=== PATIENT | female | born 1960 | race Caucasian/White ===

== ENCOUNTER 2016-07-21 14:01 | Outpatient (CLI) | payer OTHER | END 2016-07-21 14:02 | disposition home or self-care (01) | DX: Z12.31 Encounter for screening mammogram for malignant neoplasm of breast (principal) ==

== ENCOUNTER 2016-10-22 09:06 | Outpatient (CLI) | payer OTHER ==
[2016-10-22 18:42] LABS: ALBUMIN/GLOBULIN RATIO 1.6 (1.0-2.2); BILIRUBIN,TOTAL 0.7 mg/dL (0.2-1.0); CALCIUM 9.2 mg/dL (8.5-10.3); CREATININE 0.7 mg/dL (0.4-1.0); POTASSIUM 4.1 mmol/L (3.5-5.0); TOTAL PROTEIN 6.5 g/dL (6.7-8.2)
[2016-10-22 18:51] LABS: BASOPHILS % (AUTO) 0.9 %; EOSINOPHILS # (AUTO) 0.2 10^3/uL (0.0-0.7); EOSINOPHILS % (AUTO) 4.7 %; HGB - HEMOGLOBIN 13.6 g/dL (12.0-16.0); LYMPHOCYTES # (AUTO) 1.3 10^3/uL (1.5-3.5); LYMPHOCYTES % (AUTO) 40.2 %; MEAN CORPUSCULAR HEMOGLOBIN 31.3 pg (27.0-31.0); MEAN CORPUSCULAR HGB CONC 33.1 g/dL (32.0-36.0); MEAN CORPUSCULAR VOLUME 94.3 fL (81.0-99.0); MEAN PLATELET VOLUME 10.5 fL (7.9-10.8); MONOCYTES # (AUTO) 0.3 10^3/uL (0.0-1.0); MONOCYTES % (AUTO) 8.7 %; NEUTROPHILS # (AUTO) 1.5 10^3/uL (1.5-6.6); NEUTROPHILS % (AUTO) 45.5 %; NUCLEATED RED BLOOD CELLS AUTO 0.2 /100WBC; RED BLOOD COUNT 4.35 10^6/uL (4.20-5.40); RED CELL DISTRIBUTION WIDTH 11.8 % (12.0-15.0); UNCORRECTED WHITE BLOOD COUNT 3.3 x10^3/uL; WHITE BLOOD COUNT 3.3 x10^3/uL (4.8-10.8)
== END 2016-10-22 09:07 | disposition home or self-care (01) ==
LOC: LAB.F 09:06
PROVIDERS: ATTEND Nurse Practitioner Family
DX: E83.52 Hypercalcemia (principal); R20.2 Paresthesia of skin
CPT/HCPCS: 36415; 80053; 83970; 85025

== ENCOUNTER 2016-11-11 15:35 | Outpatient (CLI) | payer OTHER ==
--- NOTE | 2016-11-12 09:47 | XRAY Report ---
TWO-VIEW LUMBAR SPINE: 11/11/2016 CLINICAL INDICATION: Paresthesias, low back pain. FINDINGS: AP, lateral views of the lumbar spine demonstrate mild degenerative disk disease, worst at L5-S1. There is no evidence of compression fracture or subluxation. The visualized bowel gas patte rn is normal. IMPRESSION: MILD DEGENERATIVE DISK DISEASE. JOB #: [id number] EXT JOB #:[id number]
--- NOTE | 2016-11-12 09:52 | XRAY Report ---
SACRUM AND COCCYX: 11/11/2016 CLINICAL INDICATION: Pain. FINDINGS: AP, oblique, and lateral views of the sacrum and coccyx demonstrate no evidence of fractur e. The sacral ala are preserved. Mild bilateral hip osteoarthritis is incidentally noted. IMPRESSION: NORMAL SACRUM AND COCCYX. JOB #: [id number] EXT JOB #:[id number]
== END 2016-11-11 15:36 | disposition home or self-care (01) ==
LOC: DI.S 15:35
PROVIDERS: ATTEND Nurse Practitioner Family
DX: M51.36 Other intervertebral disc degeneration, lumbar region (principal)
CPT/HCPCS: 72100; 72220

== ENCOUNTER 2017-03-17 14:32 | Outpatient (CLI) | payer OTHER ==
[2017-03-17 17:48] LABS: EOSINOPHILS # (AUTO) 0.2 10^3/uL (0.0-0.7); EOSINOPHILS % (AUTO) 5.3 %; HCT - HEMATOCRIT 39.7 % (37.0-47.0); HGB - HEMOGLOBIN 13.8 g/dL (12.0-16.0); LYMPHOCYTES # (AUTO) 1.4 10^3/uL (1.5-3.5); LYMPHOCYTES % (AUTO) 35.3 %; MEAN CORPUSCULAR HGB CONC 34.8 g/dL (32.0-36.0); MEAN CORPUSCULAR VOLUME 91.9 fL (81.0-99.0); MEAN PLATELET VOLUME 9.9 fL (7.9-10.8); MONOCYTES # (AUTO) 0.3 10^3/uL (0.0-1.0); MONOCYTES % (AUTO) 8.5 %; NEUTROPHILS % (AUTO) 49.9 %; RED BLOOD COUNT 4.32 10^6/uL (4.20-5.40); RED CELL DISTRIBUTION WIDTH 11.7 % (12.0-15.0); UNCORRECTED WHITE BLOOD COUNT 3.9 x10^3/uL; WHITE BLOOD COUNT 3.9 x10^3/uL (4.8-10.8)
[2017-03-17 18:20] LABS: ALBUMIN/GLOBULIN RATIO 1.5 (1.0-2.2); BILIRUBIN,TOTAL 0.7 mg/dL (0.2-1.0); CALCIUM 9.1 mg/dL (8.5-10.3); CREATININE 0.8 mg/dL (0.4-1.0); POTASSIUM 4.1 mmol/L (3.5-5.0); TOTAL PROTEIN 6.7 g/dL (6.7-8.2)
[2017-03-17 18:26] LABS: THYROID STIMULATING HORMONE 1.14 uIU/mL (0.34-5.60)
== END 2017-03-17 14:33 | disposition home or self-care (01) ==
LOC: LAB.F 14:32
PROVIDERS: ATTEND Nurse Practitioner Family
DX: R53.83 Other fatigue (principal); M54.5 Low back pain
CPT/HCPCS: 36415; 80053; 84436; 84439; 84443; 84481; 85025; 86376

== ENCOUNTER 2017-08-25 14:59 | Outpatient (CLI) | payer OTHER ==
[2017-08-25 17:37] LABS: BASOPHILS % (AUTO) 0.7 %; EOSINOPHILS # (AUTO) 0.1 10^3/uL (0.0-0.7); EOSINOPHILS % (AUTO) 2.9 %; HGB - HEMOGLOBIN 13.7 g/dL (12.0-16.0); LYMPHOCYTES # (AUTO) 1.3 10^3/uL (1.5-3.5); MEAN CORPUSCULAR HGB CONC 33.8 g/dL (32.0-36.0); MEAN CORPUSCULAR VOLUME 91.6 fL (81.0-99.0); MEAN PLATELET VOLUME 9.7 fL (7.9-10.8); MONOCYTES # (AUTO) 0.3 10^3/uL (0.0-1.0); MONOCYTES % (AUTO) 7.3 %; NEUTROPHILS # (AUTO) 2.8 10^3/uL (1.5-6.6); NEUTROPHILS % (AUTO) 61.1 %; PLT - PLATELET COUNT 192 10^3/uL (130-450); RED BLOOD COUNT 4.42 10^6/uL (4.20-5.40); RED CELL DISTRIBUTION WIDTH 11.6 % (12.0-15.0); WHITE BLOOD COUNT 4.5 x10^3/uL (4.8-10.8)
[2017-08-25 17:47] LABS: ALBUMIN 4.2 g/dL (3.2-5.5); ALBUMIN/GLOBULIN RATIO 1.5 (1.0-2.2); BILIRUBIN,TOTAL 0.6 mg/dL (0.2-1.0); CALCIUM 9.2 mg/dL (8.5-10.3); CREATININE 0.8 mg/dL (0.4-1.0)
== END 2017-08-25 15:00 | disposition home or self-care (01) ==
LOC: LAB.F 14:59
PROVIDERS: ATTEND Nurse Practitioner Family
DX: R10.12 Left upper quadrant pain (principal)
CPT/HCPCS: 36415; 80053; 82150; 83690; 85025

== ENCOUNTER 2017-10-02 10:48 | Outpatient (CLI) | payer OTHER ==
--- NOTE | 2017-10-02 19:48 | XRAY Report ---
THREE-VIEW RIGHT ANKLE: 10/02/2017 CLINICAL INDICATION: Pain. FINDINGS: AP, lateral, and oblique views of the right ankle demonstrate lateral soft tissue swelling. There is a possible tiny avulsion from the lateral calcaneus, only seen on the AP view. No joint effusion is present. The joint spaces are preserved. IMPRESSION: POSSIBLE TINY AVULSION FROM THE LATERAL CALCANEUS, ONLY SEEN ON THE AP VIEW. TD: 10/02/2017 19:47
== END 2017-10-02 10:49 | disposition home or self-care (01) ==
LOC: DI.S 10:48
PROVIDERS: ATTEND Nurse Practitioner Family
DX: M25.571 Pain in right ankle and joints of right foot (principal)

== ENCOUNTER 2018-04-19 13:09 | Emergency (ER) | payer OTHER ==
[2018-04-19] MEDS ORDERED: PROMETHAZINE INJ 25 MG in SODIUM CHLORIDE 0.9% 50 ML IV STA (14:37)
[2018-04-19] MEDS ORDERED: diphenhydrAMINE INJ 50 MG/ML VIAL IVP STA (14:37)
[2018-04-19] MEDS ORDERED: SODIUM CHLORIDE 0.9% 1,000 ML IV ONE (14:37)
[2018-04-19] MEDS ORDERED: KETOROLAC 30 MG/ML VIAL IVP STA (14:37)
[2018-04-19 14:53] LABS: BASOPHILS % (AUTO) 0.6 %; HGB - HEMOGLOBIN 14.3 g/dL (12.0-16.0); LYMPHOCYTES # (AUTO) 0.5 10^3/uL (1.5-3.5); LYMPHOCYTES % (AUTO) 10.1 %; MEAN CORPUSCULAR HEMOGLOBIN 31.8 pg (27.0-31.0); MEAN CORPUSCULAR HGB CONC 35.3 g/dL (32.0-36.0); MEAN CORPUSCULAR VOLUME 90.1 fL (81.0-99.0); MEAN PLATELET VOLUME 8.4 fL (7.9-10.8); MONOCYTES # (AUTO) 0.2 10^3/uL (0.0-1.0); MONOCYTES % (AUTO) 4.5 %; NEUTROPHILS # (AUTO) 4.1 10^3/uL (1.5-6.6); NEUTROPHILS % (AUTO) 83.8 %; PLT - PLATELET COUNT 173 10^3/uL (130-450); RED CELL DISTRIBUTION WIDTH 11.6 % (12.0-15.0); WHITE BLOOD COUNT 4.9 x10^3/uL (4.8-10.8)
--- NOTE | 2018-04-19 14:58 | ED Physician Documentation ---
History of Present Illness - Stated complaint Stated Complaint: MIGRAINE/DIZZY/NAUSEA - Chief complaint Chief Complaint: General - History obtained from History obtained from: Patient, Family - History of Present Illness Timing: How many weeks ago (1) Pain level max: 8 Pain level now: 5 - Additonal information Additional information: Patient is a 57-year-old female who presents with a headache that is waxing and waning since last week. She is also had diarrhea a few times. She states that that she has felt the room spinning since yesterday. Worse with movement, light, noise. Better with rest, closing her eyes and being in a dark room. Has had headaches in the past, but does not usually have migraines. Saw her PCP this morning and was brought here for evaluation. No focal neurological deficits. No numbness or tingling. No loss of vision. No changes to medications. No trauma. Review of Systems Ten Systems: 10 systems reviewed and negative Constitutional: denies: Fever, Chills Eyes: denies: Decreased vision Ears: denies: Ear pain Nose: denies: Rhinorrhea / runny nose, Congestion Throat: denies: Sore throat Cardiac: denies: Chest pain / pressure Respiratory: denies: Cough GI: reports: Nausea, Diarrhea. denies: Abdominal Pain, Vomiting, Hematemesis, Bloody / black stool Skin: denies: Rash Musculoskeletal: denies: Neck pain, Back pain Neurologic: denies: Focal weakness, Numbness, Confused, Altered mental status, Head injury, LOC PD PAST MEDICAL HISTORY - Past Medical History Past Medical History: Yes Cardiovascular: High cholesterol Endocrine/Autoimmune: HyPOthyroidism Musculoskeletal: Chronic back pain - Past Surgical History Past Surgical History: No General: Colonoscopy HEENT: Tonsil/Adenoidectomy Derm: Other - Present Medications Home Medications: Ambulatory Orders Medication Instructions Recorded Confirmed Meclizine [Antivert] 25 mg PO Q6H PRN #30 tablet 04/19/18 Ondansetron Odt [Zofran] 4 mg TL Q6H PRN #10 tablet 04/19/18 - Allergies Allergies/Adverse Reactions: Allergies Allergy/AdvReac Type Severity Reaction Status Date / Time antibiotic Allergy Unknown Uncoded 04/19/18 13:23 - Social History Does the pt smoke?: No Smoking Status: Never smoker Does the pt drink ETOH?: No Does the pt have substance abuse?: No - Immunizations Immunizations are current?: No Immunizations: TDAP >10years/unknown - POLST Patient has POLST: No PD ED PE NORMAL - Vitals Vital signs reviewed: Yes - General General: Alert and oriented X 3, No acute distress, Well developed/nourished - HEENT HEENT: Atraumatic, PERRL, EOMI, Ears normal, Moist mucous membranes, Pharynx benign - Neck Neck: Supple, no meningeal sign - Cardiac Cardiac: RRR, Strong equal pulses - Respiratory Respiratory: No respiratory distress, Clear bilaterally - Abdomen Abdomen: Soft, Non tender, Non distended - Back Back: No spinal TTP - Derm Derm: Warm and dry - Extremities Extremities: Normal ROM s pain, No edema, No calf tenderness / cord - Neuro Neuro: Alert and oriented X 3, dean for student affairs 2-12 intact, No motor deficit, No sensory deficit, Normal speech, Other (Horizontal nystagmus present. Positive Hallpike to the right) Eye Opening: Spontaneous Motor: Obeys Commands Verbal: Oriented GCS Score: 15 - Psych Psych: Normal mood, Normal affect Results - Vitals Vitals: Vital Signs - 24 hr 04/19/18 04/19/18 13:19 16:12 Temperature 36.2 C L Heart Rate 67 74 Respiratory 14 16 Rate Blood Pressure 136/75 H 142/75 H O2 Saturation 97 99 Oxygen O2 Source Room air - Labs Labs: Laboratory Tests 04/19/18 04/19/18 14:47 14:47 WBC 4.9 RBC 4.50 Hgb 14.3 Hct 40.5 MCV 90.1 MCH 31.8 H MCHC 35.3 RDW 11.6 L Plt Count 173 MPV 8.4 Neut # (Auto) 4.1 Lymph # (Auto) 0.5 L [place] # (Auto) 0.2 Eos # (Auto) 0.0 Baso # (Auto) 0.0 Absolute Nucleated RBC 0.00 Nucleated RBC % 0.0 Sodium 133 L Potassium 4.3 Chloride 96 L Carbon Dioxide 26 Anion Gap 11.0 BUN 15 Creatinine 0.6 Estimated GFR (MDRD) 102 Glucose 102 H Calcium 9.2 Total Bilirubin 1.1 H AST 20 ALT 25 Alkaline Phosphatase 78 Total Protein 7.5 Albumin 4.4 Globulin 3.1 Albumin/Globulin Ratio 1.4 Lipase 23 PD MEDICAL DECISION MAKING - ED course Complexity details: reviewed results, re-evaluated patient, considered differential, d/w patient, d/w family ED course: Patient is a 57-year-old female with a headache, this was treated with a migraine cocktail which resolved the headache. The vertigo persisted, horizontal nystagmus, positive Hallpike to the right. Meclizine seem to help. NIH stroke scale of 0. No neurological deficits. No evidence of cerebellar stroke or tumor. Will treat with meclizine and follow-up closely with her doctor for further evaluation and care. Patient counseled regarding signs and symptoms for which I believe and urgent re-evaluation would be necessary. Patient with good understanding of and agreement to plan and is comfortable going home at this time This document was made in part using voice recognition software. While efforts are made to proofread this document, sound alike and grammatical errors may occur. No evidence of subarachnoid hemorrhage or intracranial bleed clinically. GCS 15 Departure - Departure Disposition: 01 Home, Self Care Clinical Impression: Vertigo Headache Qualifiers: Headache type: unspecified Headache chronicity pattern: acute headache Intractability: not intractable Qualified Code(s): R51 - Headache Condition: Good Instructions: ED Cephalgia Unspecified, ED Vertigo Unspecified Follow-Up: DELFINO CORDOVA MD [Primary Care Provider] - Within 1 week Prescriptions: Meclizine [Antivert] 25 mg PO Q6H PRN #30 tablet PRN Reason: Vertigo Ondansetron Odt [Zofran] 4 mg TL Q6H PRN #10 tablet PRN Reason: Nausea / Vomiting Comments: Return if you worsen. Drink plenty of fluids and rest. The vertigo should improve over the next few days. Discharge Date/Time: 04/19/18 17:30
[2018-04-19 15:06] LABS: ALBUMIN 4.4 g/dL (3.2-5.5); ALBUMIN/GLOBULIN RATIO 1.4 (1.0-2.2); BILIRUBIN,TOTAL 1.1 mg/dL (0.2-1.0); CALCIUM 9.2 mg/dL (8.5-10.3); CREATININE 0.6 mg/dL (0.4-1.0); TOTAL PROTEIN 7.5 g/dL (6.7-8.2)
[2018-04-19] MEDS ORDERED: MECLIZINE 12.5 MG TABLET PO STA (16:05)
[2018-04-19 16:13] VITALS: BP 142/75
== END 2018-04-19 17:30 | disposition home or self-care (01) ==
LOC: ED 13:09
DX: R42 Dizziness and giddiness (principal); R51 Headache; R11.0 Nausea
CPT/HCPCS: 36415; 80053; 83690; 85025; 96365; 96375; 99283; A9270; J1200; J7040

== ENCOUNTER 2018-05-26 11:17 | Outpatient (CLI) | payer OTHER ==
--- NOTE | 2018-05-27 09:22 | Mammography Report ---
Reason: SCREENING MAMMO Procedure Date: 05/26/2018 Accession Number: [id number] / [id number] Procedure: [facility] - Screening Mammo w/Isra CPT Code: FULL RESULT: EXAM: Screening Mammo w/Isra DATE: 05/26/2018 11:59 AM CLINICAL HISTORY: Screening encounter. History of nulliparity and left breast surgical biopsy with benign results. Family history of breast cancer in the mother at age 80. TECHNIQUE: Bilateral CC and MLO views were obtained. COMPARISON: 07/21/2016 through 06/19/2010. FINDINGS: The breasts demonstrate heterogeneously dense fibroglandular parenchyma bilaterally. There are coarse typically benign calcifications. No suspicious masses, clustered microcalcifications, or regions of architectural distortion are identified. IMPRESSION: Benign findings RECOMMENDATION: Routine annual screening unless otherwise clinically indicated. BIRADS CATEGORY 2: Benign findings STANDARD QUALIFYING STATEMENTS: 1. This examination was not reviewed with the aid of Computer-Aided Detection (CAD). 2. A negative or benign imaging report should not preclude biopsy if clinically suspicious findings are present. 3. Dense breasts may obscure an underlying neoplasm. 4. This examination was reviewed with the aid of 3D breast imaging (tomosynthesis).
== END 2018-05-26 11:18 | disposition home or self-care (01) ==
LOC: DI 11:17
PROVIDERS: ATTEND Internal Medicine
DX: Z12.31 Encounter for screening mammogram for malignant neoplasm of breast (principal); Z80.3 Family history of malignant neoplasm of breast
CPT/HCPCS: 77063; 77067

== ENCOUNTER 2019-05-27 11:37 | Outpatient (CLI) | payer OTHER ==
--- NOTE | 2019-05-30 11:39 | Mammography Report ---
Reason: ROUTINE MAMMO Procedure Date: 05/27/2019 Accession Number: [id number] / [id number] Procedure: MGS - Screening Mammo Dig Bilat CPT Code: Final Report FULL RESULT: EXAM: Screening Mammo Dig Bilat DATE: 05/27/2019 12:03 PM CLINICAL HISTORY: Routine screening TECHNIQUE: (B) - Bilateral CC and MLO views were obtained. COMPARISON: 05/26/2018, 07/21/2016, 04/10/2014, 06/30/2012 and 06/19/2010 PARENCHYMAL PATTERN: (D) - The breasts demonstrate heterogeneously dense fibroglandular parenchyma bilaterally. FINDINGS: No significant interval change. Innumerable bilateral calcifications are scattered throughout both breasts with a gradual increase over series of mammograms. No one area appears worrisome enough to warrant additional imaging. There are no suspicious masses, calcifications, or areas of distortion. IMPRESSION: Benign findings. BI-RADS category 2. RECOMMENDATION: (ANNUAL) - Recommend routine annual screening mammography. BI-RADS CATEGORY: (2) - Benign Findings. STANDARD QUALIFYING STATEMENTS: 1. This examination was not reviewed with the aid of Computer-Aided Detection (CAD). 2. A negative or benign imaging report should not preclude biopsy if clinically suspicious findings are present. 3. Dense breasts may obscure an underlying neoplasm. 4. This examination was reviewed without the aid of 3D breast imaging (tomosynthesis).
== END 2019-05-27 11:38 | disposition home or self-care (01) ==
LOC: DI.S 11:37
DX: Z12.31 Encounter for screening mammogram for malignant neoplasm of breast (principal)
CPT/HCPCS: 77067

== ENCOUNTER 2019-10-15 19:32 | Emergency (ER) | payer OTHER ==
--- NOTE | 2019-10-15 20:10 | ED Physician Documentation ---
History of Present Illness - Stated complaint Stated Complaint: R CALF PAIN - Chief complaint Chief Complaint: Ext Problem - History obtained from History obtained from: Patient - History of Present Illness Timing: How many days ago (3-4) Pain level max: 5 Pain level now: 4 - Additonal information Additional information: 58-year-old female presents to the emergency department stating she had pain in her distal thigh after taking an online yoga class a few days ago. Now the pain has moved to her calf and she noticed that her calf was swollen today. She called the nurse advice line and was instructed to come here for possible DVT. She does not smoke. No history of blood clots. She is not on any medications at home. She does not take hormones. No redness. No fever. Nothing makes it better or worse Review of Systems Constitutional: denies: Fever, Chills Cardiac: denies: Chest pain / pressure Respiratory: denies: Dyspnea, Cough GI: denies: Vomiting, Diarrhea Skin: denies: Rash Musculoskeletal: denies: Neck pain, Back pain PD PAST MEDICAL HISTORY - Past Medical History Cardiovascular: High cholesterol Endocrine/Autoimmune: HyPOthyroidism Musculoskeletal: Chronic back pain - Past Surgical History Past Surgical History: No General: Colonoscopy HEENT: Tonsil/Adenoidectomy Derm: Other - Present Medications Home Medications: Ambulatory Orders Medication Instructions Recorded Confirmed Meclizine [Antivert] 25 mg PO Q6H PRN #30 tablet 04/19/18 Ondansetron Odt [Zofran] 4 mg TL Q6H PRN #10 tablet 04/19/18 - Allergies Allergies/Adverse Reactions: Allergies Allergy/AdvReac Type Severity Reaction Status Date / Time Sulfa (Sulfonamide AdvReac Mild Unknown Verified 10/15/19 19:45 Antibiotics) antibiotic Allergy Unknown Uncoded 04/19/18 13:23 - Social History Does the pt smoke?: No Smoking Status: Never smoker Does the pt drink ETOH?: No Does the pt have substance abuse?: No - Immunizations Immunizations are current?: No Immunizations: TDAP >10years/unknown - POLST Patient has POLST: No PD ED PE NORMAL - Vitals Vital signs reviewed: Yes - General General: Alert and oriented X 3, No acute distress, Well developed/nourished - HEENT HEENT: Moist mucous membranes - Neck Neck: Supple, no meningeal sign - Respiratory Respiratory: No respiratory distress - Derm Derm: Warm and dry - Extremities Extremities: Other (Mild swelling to the right posterior calf with mild tenderness. Neurovascular intact. Compartments are soft. No skin changes. No signs of infection. No bruising.) - Neuro Neuro: Alert and oriented X 3 - Psych Psych: Normal mood, Normal affect Results - Vitals Vitals: Vital Signs - 24 hr 10/15/19 10/15/19 19:40 21:06 Temperature 37.2 C Heart Rate 70 56 L Respiratory 16 20 Rate Blood Pressure 143/81 H 150/80 H O2 Saturation 98 100 Oxygen O2 Source Room air - Rads (name of study) Duplex ultrasound right lower extremity Radiology: Prelim report reviewed, EMP read contemporaneously, See rad report (No DVT) PD MEDICAL DECISION MAKING - ED course Complexity details: reviewed results, re-evaluated patient, considered differential, d/w patient ED course: Patient with right calf swelling after taking a yoga class. Likely calf strain. No evidence of DVT. No evidence of cellulitis. No evidence of infection. Patient counseled regarding signs and symptoms for which I believe and urgent re-evaluation would be necessary. Patient with good understanding of and agreement to plan and is comfortable going home at this time This document was made in part using voice recognition software. While efforts are made to proofread this document, sound alike and grammatical errors may occur. Departure - Departure Disposition: 01 Home, Self Care Clinical Impression: Strain of calf muscle Qualifiers: Encounter type: initial encounter Laterality: right Qualified Code(s): S86.811A - Strain of other muscle(s) and tendon(s) at lower leg level, right leg, initial encounter Condition: Good Instructions: ED Strain Muscle Ext Follow-Up: Your,doctor in 1 week [Other] Comments: There is no evidence of blood clot on your ultrasound tonight. You can use Motrin and/or Tylenol as needed for pain. Return if you worsen. This should improve over the next week or so. Ice and/or heat may help as well. Discharge Date/Time: 10/15/19 21:08
--- NOTE | 2019-10-15 21:04 | Ultrasound Report ---
Reason: R calf pain and swelling Procedure Date: 10/15/2019 Accession Number: [id number] / [id number] Procedure: US - Duplex Ext Veins Right CPT Code: Final Report FULL RESULT: EXAM: RIGHT LOWER EXTREMITY VENOUS ULTRASOUND EXAM DATE: 10/15/2019 08:30 PM. CLINICAL HISTORY: R calf pain and swelling. COMPARISON: None. TECHNIQUE: Real-time sonographic vascular imaging was performed by the grants and contracts assistant through the lower extremity utilizing both color-flow and Doppler spectral analysis. Multiple community relations representative static images were saved for review. FINDINGS: Common Femoral Vein (CFV): Normal. CFV-GSV Junction: Normal. Profunda Femoral Vein (PFV): Normal. Femoral Vein (FV) Prox: Normal. Femoral Vein (FV) Mid: Normal. Femoral Vein (FV) Dist: Normal. Popliteal Vein: Normal. Posterior Tibial Veins: Normal. Peroneal Veins: Normal. Contralateral Side CFV: Not evaluated. Other: None. IMPRESSION: No evidence for deep venous thrombosis in the right lower extremity. RADIA
[2019-10-15 21:07] VITALS: BP 150/80
== END 2019-10-15 21:08 | disposition home or self-care (01) ==
LOC: ED 19:32
DX: S86.811A Strain of other muscle(s) and tendon(s) at lower leg level, right leg, initial encounter (principal); X50.9XXA Other and unspecified overexertion or strenuous movements or postures, initial encounter; Y93.42 Activity, yoga
CPT/HCPCS: 99283; 99284

== ENCOUNTER 2020-08-18 13:17 | Outpatient (CLI) | payer OTHER | END 2020-08-18 13:18 | disposition critical access hospital (66) | LOC: EMS 13:17 | PROVIDERS: ATTEND Emergency Medicine | DX: R00.2 Palpitations (principal) | CPT/HCPCS: A0425; A0429 ==

== ENCOUNTER 2020-08-18 13:44 | Emergency (ER) | payer OTHER ==
[2020-08-18] MEDS ORDERED: SODIUM CHLORIDE 0.9% 1,000 ML IV STA (14:04)
--- NOTE | 2020-08-18 14:06 | ED Physician Documentation ---
PD HPI CHEST PAIN - Stated complaint Stated Complaint: PALPATATIONS - History obtained from History obtained from: Patient, EMS - History of Present Illness Timing - onset: How many days ago (several) Timing - onset during: Sleep, Rest, Light activity. No: Exertion Timing - duration: Seconds Timing - details: Intermittant (Having intermittent feeling of lurching in her chest associated with a mild cough precipitated. She denies pain per se. She denies any near syncope. She has noted this over the last several days to varying degrees.) Quality: Other ("surge" feeling with stimulated cough intermittently. Feeling of just not well.). No: Aching, Sharp Location: Substernal Radiation: No: Jaw, Neck Improved by: No: Rest Worsened by: No: Exertion (feels better when active, more noted with resting.) Associated symptoms: Cough (just when the "surge" feeling happens.). No: Shortness of air, Nausea, Feeling faint / dizzy Similar symptoms before: Has not had sx before Recently seen: Clinic (seeing PMD and had had concern about underfunctioning thyroid. Has been on thyroid supplement the past few months, and had dose increased about 3 weeks ago. No other recent med change.), Other (Denies alcohol use, nor smoking. Has just 1 cup coffee daily.) Review of Systems Constitutional: denies: Fever, Chills Nose: denies: Rhinorrhea / runny nose, Congestion Throat: denies: Sore throat Cardiac: reports: Palpitations. denies: Chest pain / pressure, Pedal edema, Calf pain Respiratory: denies: Dyspnea, Wheezing GI: denies: Nausea, Vomiting, Diarrhea Neurologic: denies: Focal weakness, Near syncope, Headache Endocrine: denies: Weight loss, Weight gain PD PAST MEDICAL HISTORY - Past Medical History Cardiovascular: High cholesterol Respiratory: None Neuro: None Endocrine/Autoimmune: HyPOthyroidism Musculoskeletal: Chronic back pain - Past Surgical History Past Surgical History: No General: Colonoscopy HEENT: Tonsil/Adenoidectomy Derm: Other - Present Medications Home Medications: Ambulatory Orders Medication Instructions Recorded Confirmed Meclizine [Antivert] 25 mg PO Q6H PRN #30 tablet 04/19/18 Ondansetron Odt [Zofran] 4 mg TL Q6H PRN #10 tablet 04/19/18 - Allergies Allergies/Adverse Reactions: Allergies Allergy/AdvReac Type Severity Reaction Status Date / Time meloxicam Allergy Dizziness Verified 08/18/20 13:49 Sulfa (Sulfonamide AdvReac Mild Unknown Verified 10/15/19 19:45 Antibiotics) antibiotic Allergy Unknown Uncoded 04/19/18 13:23 - Social History Does the pt smoke?: No Smoking Status: Never smoker Does the pt drink ETOH?: No Does the pt have substance abuse?: No - Immunizations Immunizations are current?: No Immunizations: TDAP >10years/unknown - POLST Patient has POLST: No PD ED PE NORMAL - Vitals Vital signs reviewed: Yes - General General: Alert and oriented X 3, No acute distress (conversant. Appears concerned about the symptoms but not in distress. ), Well developed/nourished - HEENT HEENT: Moist mucous membranes, Pharynx benign - Neck Neck: Supple, no meningeal sign, No adenopathy, Thyroid normal - Cardiac Cardiac: RRR, No murmur, Other (monitor shows PVC when she has a feeling of the surge feeling in her chest. ) - Respiratory Respiratory: Clear bilaterally - Abdomen Abdomen: Soft, Non tender - Derm Derm: Normal color, Warm and dry - Extremities Extremities: No tenderness to palpate, Normal ROM s pain, No edema, No calf tenderness / cord - Neuro Neuro: Alert and oriented X 3, No motor deficit, Normal speech Results - Vitals Vitals: Vital Signs - 24 hr 08/18/20 08/18/20 08/18/20 13:49 14:00 15:35 Temperature 36.9 C Heart Rate 89 73 71 Respiratory 24 18 18 Rate Blood Pressure 155/111 H 145/117 H 133/73 H O2 Saturation 100 98 100 Oxygen O2 Source Room air Oxygen Flow Rate 98 - EKG (time done) 15:13 Rate: Rate (enter#) (72) Rhythm: NSR [place]: Normal Intervals: Normal CT QRS: Normal Ischemia: Normal ST segments. No: ST elevation c/w ischemia, ST depression - Labs Labs: Laboratory Tests 08/18/20 08/18/20 08/18/20 14:30 14:30 14:30 WBC 5.0 RBC 3.99 L Hgb 11.8 L Hct 35.3 L MCV 88.5 MCH 29.6 MCHC 33.4 RDW 11.7 L Plt Count 254 MPV 10.1 Neut # (Auto) 3.7 Lymph # (Auto) 0.8 L [place] # (Auto) 0.4 Eos # (Auto) 0.1 Baso # (Auto) 0.0 Absolute Nucleated RBC 0.00 Nucleated RBC % 0.0 Sodium 140 Potassium 4.2 Chloride 100 L Carbon Dioxide 26 Anion Gap 14.0 H BUN 13 Creatinine 0.5 Estimated GFR (MDRD) 125 Glucose 109 H Calcium 9.5 Magnesium 2.3 Total Bilirubin 0.7 AST 17 ALT 13 Alkaline Phosphatase 68 Troponin I High Sens < 2.3 L B-Natriuretic Peptide Total Protein 6.8 Albumin 3.4 Globulin 3.4 Albumin/Globulin Ratio 1.0 Lipase 22 TSH 08/18/20 08/18/20 14:30 14:30 WBC RBC Hgb Hct MCV MCH MCHC RDW Plt Count MPV Neut # (Auto) Lymph # (Auto) [place] # (Auto) Eos # (Auto) Baso # (Auto) Absolute Nucleated RBC Nucleated RBC % Sodium Potassium Chloride Carbon Dioxide Anion Gap BUN Creatinine Estimated GFR (MDRD) Glucose Calcium Magnesium Total Bilirubin AST ALT Alkaline Phosphatase Troponin I High Sens B-Natriuretic Peptide 41 Total Protein Albumin Globulin Albumin/Globulin Ratio Lipase TSH < 0.08 L - Rads (name of study) chest xray Radiology: Prelim report reviewed (no acute process), See rad report PD MEDICAL DECISION MAKING - ED course Complexity details: reviewed results (TSH is very low suggesting her thyroid supplement is been increased too much. This would correlate with potentially the PVCs. Electrolytes are otherwise normal. No signs of heart muscle injury or heart failure based on lab testing and x-ray. Does not sound ischemic.), re- evaluated patient (She is having occasional feelings of the same lurching feeling in her chest that she had been feeling at home. This correlated on the monitor with PVCs. No other ectopy noted.), considered differential, d/w patient Departure - Departure Disposition: 01 Home, Self Care Clinical Impression: Chest discomfort, PVC's (premature ventricular contractions) Condition: Stable Record reviewed to determine appropriate education?: Yes Instructions: ED Palpitations Follow-Up: DHIRAJ PATTERSON PA [Primary Care Provider] - Comments: Your EKG is appears normal. There is no signs of heart failure or heart injury on your blood test. Your electrolytes are normal. Your TSH (thyroid- stimulating hormone) is very low which suggests that your thyroid medication dosing is a little too high. I would hold your thyroid supplement for the next 3 days or so and then resume it at the "1 g" dose you had been on previously. I would anticipate improvement in the number of PVCs generally over the next several days to a week or so with lowering of the dose and staying well- hydrated. Follow-up with your primary care.
--- NOTE | 2020-08-18 14:24 | XRAY Report ---
PROCEDURE: Chest 1 View X-Ray INDICATIONS: Chest Pain TECHNIQUE: One view of the chest was acquired. COMPARISON: None FINDINGS: Surgical changes and devices: None. Lungs and pleura: No pleural effusions or pneumothorax. Lungs are clear. Mediastinum: Mediastinal contours appear normal. Heart size is normal. Bones and chest wall: No suspicious bony lesions. Overlying soft tissues appear unremarkable. IMPRESSION: No evidence acute pulmonary process. Reviewed by: Gregory Giles MD on 08/18/2020 1:23 PM [facility] Approved by: Gregory Giles MD on 08/18/2020 1:23 PM [facility] Station ID: [id number]
[2020-08-18 14:44] LABS: BASOPHILS % (AUTO) 0.6 %; EOSINOPHILS # (AUTO) 0.1 10^3/uL (0.0-0.7); EOSINOPHILS % (AUTO) 1.8 %; HCT - HEMATOCRIT 35.3 % (37.0-47.0); HGB - HEMOGLOBIN 11.8 g/dL (12.0-16.0); LYMPHOCYTES # (AUTO) 0.8 10^3/uL (1.5-3.5); LYMPHOCYTES % (AUTO) 14.9 %; MEAN CORPUSCULAR HEMOGLOBIN 29.6 pg (27.0-31.0); MEAN CORPUSCULAR HGB CONC 33.4 g/dL (32.0-36.0); MEAN CORPUSCULAR VOLUME 88.5 fL (81.0-99.0); MEAN PLATELET VOLUME 10.1 fL (7.9-10.8); MONOCYTES # (AUTO) 0.4 10^3/uL (0.0-1.0); MONOCYTES % (AUTO) 8.2 %; NEUTROPHILS # (AUTO) 3.7 10^3/uL (1.5-6.6); NEUTROPHILS % (AUTO) 74.1 %; PLT - PLATELET COUNT 254 10^3/uL (130-450); RED BLOOD COUNT 3.99 10^6/uL (4.20-5.40); RED CELL DISTRIBUTION WIDTH 11.7 % (12.0-15.0)
[2020-08-18 15:08] LABS: ALBUMIN 3.4 g/dL (3.2-5.5); BILIRUBIN,TOTAL 0.7 mg/dL (0.2-1.0); CALCIUM 9.5 mg/dL (8.5-10.3); CREATININE 0.5 mg/dL (0.4-1.0); MAGNESIUM 2.3 mg/dL (1.7-2.8); POTASSIUM 4.2 mmol/L (3.5-5.0); TOTAL PROTEIN 6.8 g/dL (6.7-8.2)
[2020-08-18 16:21] VITALS: BP 129/72
== END 2020-08-18 16:30 | disposition home or self-care (01) ==
LOC: EDUNIT# → ED 13:44
DX: I49.3 Ventricular premature depolarization (principal); R07.89 Other chest pain
CPT/HCPCS: 36415; 80053; 83690; 83735; 83880; 84443; 84484; 85025; 93005; 99284

== ENCOUNTER 2020-09-26 08:00 | Outpatient (CLI) | payer OTHER ==
[2020-09-26 18:06] LABS: BASOPHILS % (AUTO) 0.4 %; EOSINOPHILS # (AUTO) 0.1 10^3/uL (0.0-0.7); EOSINOPHILS % (AUTO) 2.1 %; HCT - HEMATOCRIT 36.4 % (37.0-47.0); HGB - HEMOGLOBIN 11.8 g/dL (12.0-16.0); LYMPHOCYTES # (AUTO) 1.2 10^3/uL (1.5-3.5); LYMPHOCYTES % (AUTO) 24.3 %; MEAN CORPUSCULAR HEMOGLOBIN 28.5 pg (27.0-31.0); MEAN CORPUSCULAR HGB CONC 32.4 g/dL (32.0-36.0); MEAN CORPUSCULAR VOLUME 87.9 fL (81.0-99.0); MEAN PLATELET VOLUME 10.2 fL (7.9-10.8); MONOCYTES # (AUTO) 0.4 10^3/uL (0.0-1.0); MONOCYTES % (AUTO) 8.8 %; NEUTROPHILS # (AUTO) 3.1 10^3/uL (1.5-6.6); NEUTROPHILS % (AUTO) 64.2 %; PLT - PLATELET COUNT 326 10^3/uL (130-450); RED BLOOD COUNT 4.14 10^6/uL (4.20-5.40); RED CELL DISTRIBUTION WIDTH 12.9 % (12.0-15.0); WHITE BLOOD COUNT 4.8 x10^3/uL (4.8-10.8)
[2020-09-26 18:31] LABS: ALBUMIN/GLOBULIN RATIO 1.1 (1.0-2.2); BILIRUBIN,TOTAL 0.6 mg/dL (0.2-1.0); CREATININE 0.4 mg/dL (0.4-1.0); POTASSIUM 4.2 mmol/L (3.5-5.0); TOTAL PROTEIN 7.6 g/dL (6.7-8.2)
[2020-09-27 12:16] LABS: HEPATITIS B SURFACE ANTIGEN NON-REACTIVE (NON-REACTIVE); HEPATITIS C ANTIBODY NON-REACTIVE (NON-REACTIVE)
== END 2020-09-26 23:59 | disposition home or self-care (01) ==
LOC: LAB.WCP 08:00
PROVIDERS: ATTEND Internal Medicine Rheumatology
DX: M06.4 Inflammatory polyarthropathy (principal)
CPT/HCPCS: 36415; 80053; 85025; 85651; 86803; 87340

== ENCOUNTER 2021-01-10 13:12 | Outpatient (CLI) | payer OTHER ==
--- NOTE | 2021-01-11 10:49 | Mammography Report ---
BILATERAL DIGITAL SCREENING MAMMOGRAM 3D/2D: 01/10/2021 CLINICAL: Routine screening. Comparison is made to exams dated: 05/27/2019 mammogram, 05/26/2018 mammogram, 07/21/2016 mammogram, 1 mammogram, 06/30/2012 mammogram, and 06/19/2010 mammogram - [facility]. The tissue of both breasts is extremely dense, which lowers the sensitivity of mammography. There is an oval equal density asymmetry with an obscured and indistinct margin in the left breast po sterior depth superior region seen on the mediolateral oblique view only. This is more prominent. No other significant masses, calcifications, or other findings are seen in either breast. IMPRESSION: INCOMPLETE: NEEDS ADDITIONAL IMAGING EVALUATION The oval equal density asymmetry in the left breast is indeterminate. Mediolateral and spot compress ion views as well as additional views with possible ultrasound are recommended. This exam was interpreted at Station ID: [id number]. NOTE: For mammograms, a report in lay terms will be sent to the patient. Approximately 15% of breast malignancies will not be visualized mammographically. In the management of a palpable breast mass, a negative mammogram must not discourage biopsy of a clinically suspicious lesion. Electronically Signed By: Artie Bartlett M.D. ddp/penrad:01/10/2021 14:32:20 ACR BI-RADS Category 0: Incomplete 3340F PARENCHYMAL PATTERN: (VD) - The breast(s) demonstrate(s) extremely dense parenchyma, limiting the sen sitivity of mammography. BI-RADS CATEGORY: (0) - 0 Mammo and US [id number] Immediate follow-up LATERALITY: (B)
== END 2021-01-10 13:13 | disposition home or self-care (01) ==
LOC: DI 13:12
DX: Z12.31 Encounter for screening mammogram for malignant neoplasm of breast (principal); R92.8 Other abnormal and inconclusive findings on diagnostic imaging of breast

== ENCOUNTER 2021-01-25 12:39 | Outpatient (CLI) | payer OTHER ==
--- NOTE | 2021-01-28 16:37 | Mammography Report ---
UNILATERAL LEFT DIGITAL DIAGNOSTIC MAMMOGRAM 3D/2D: 01/25/2021 CLINICAL: Patient returns today to evaluate an asymmetry in the left breast. Comparison is made to exams dated: 01/10/2021 mammogram, 05/27/2019 mammogram, 05/26/2018 mammogram, 07/21/2016 mammogram, 04/10/2014 mammogram, and 06/30/2012 mammogram - [facility]. Th e tissue of left breast is extremely dense, which lowers the sensitivity of mammography. There is an oval equal density asymmetry with an obscured and indistinct margin in the left breast po sterior depth superior region seen on the mediolateral oblique view only. This is seen in additional views. This is more prominent. No other significant masses or calcifications are seen in the breast. IMPRESSION: INCOMPLETE: NEEDS ADDITIONAL IMAGING EVALUATION The oval equal density asymmetry in the left breast is indeterminate. An ultrasound is recommended for further evaluation and is scheduled to immediately follow this exami nation. This exam was interpreted at Station ID: [id number]. NOTE: For mammograms, a report in lay terms will be sent to the patient. Approximately 15% of breast malignancies will not be visualized mammographically. In the management of a palpable breast mass, a negative mammogram must not discourage biopsy of a clinically suspicious lesion. Electronically Signed By: Wili De Anda M.D. aty/:01/25/2021 15:06:47 ACR BI-RADS Category 0: Incomplete 3340F PARENCHYMAL PATTERN: (VD) - The breast(s) demonstrate(s) extremely dense parenchyma, limiting the sen sitivity of mammography. BI-RADS CATEGORY: (0) - 0 Ultrasound [id number] Immediate follow-up LATERALITY: (L)
--- NOTE | 2021-01-28 16:37 | Ultrasound Report ---
LIMITED ULTRASOUND OF LEFT BREAST AND AXILLA: 01/25/2021 CLINICAL: Patient returns today to evaluate a focal asymmetry in the left breast. Comparison is made to exams dated: 01/25/2021 mammogram, 01/10/2021 mammogram, 05/27/2019 mammogram, 1 07/27/2017 mammogram, 07/21/2016 mammogram, and 04/10/2014 mammogram - [facility]. Color flow and real-time ultrasound of the left breast 2 o'clock, and axilla regions were performed. Carey scale images of the real-time examination were reviewed. There is a 0.9 cm x 0.5 cm x 0.7 cm irregular mass in the left breast at 2 o'clock posterior depth 9 cm from the nipple. This irregular mass is hypoechoic with suggestion of possible fatty hilum. Ther e is irregular, eccentric cortical thickening and possible posterior shadowing. This correlates with mammography findings. Color flow imaging demonstrates that there is no vascularity present. No significant abnormalities were seen sonographically in the left axilla. IMPRESSION: SUSPICIOUS OF MALIGNANCY The 0.9 cm x 0.5 cm x 0.7 cm irregular mass in the left breast resembles a solid mass or an abnormal lymph node and is suspicious of malignancy. An ultrasound guided biopsy is recommended. Findings and recommendations were discussed with the patient by Dr. Giles during today's examination . This exam was interpreted at Station ID: [id number]. Electronically Signed By: Wili De Anda M.D. aty/:01/25/2021 15:09:28 Ultrasound BI-RADS: 4 Suspicious for malignancy BI-RADS CATEGORY: (4) - 4 None [id number] Immediate follow-up LATERALITY: ()
== END 2021-01-25 12:40 | disposition home or self-care (01) ==
LOC: DI 12:39
PROVIDERS: ATTEND Physician Assistant
DX: R92.8 Other abnormal and inconclusive findings on diagnostic imaging of breast (principal)

== ENCOUNTER 2021-01-30 08:17 | Outpatient (CLI) | payer OTHER ==
[2021-01-30] MEDS ORDERED: LIDOCAINE MPF 1%-EPI 1:200000 30 ML VIAL ONE (08:18)
[2021-01-30] MEDS ORDERED: BUFFERED LIDOCAINE 10 ML SYRINGE ONE (08:18)
--- NOTE | 2021-01-30 10:25 | Ultrasound Report ---
Salvador Reviewed by: Darnell Lin on 01/30/2021 10:24 AM PDT Approved by: Darnell Lin on 01/30/2021 10:24 AM PDT Station ID: [id number]
--- NOTE | 2021-02-08 07:02 | Ultrasound Report ---
LIMITED ULTRASOUND OF LEFT BREAST: 01/30/2021 CLINICAL: Patient returns today to evaluate an asymmetry in the left breast. Comparison is made to exams dated: 01/25/2021 ultrasound, 01/25/2021 mammogram, 01/10/2021 mammogram, 1 07/28/2018 mammogram, 05/26/2018 mammogram, and 07/21/2016 mammogram - [facility]. Ultrasound of the left breast 2 o'clock region was performed. Carey scale images of the real-time exa mination were reviewed. The 0.9 cm x 0.5 cm x 0.7 cm mass in the left breast at 2 o'clock posterior depth 9 cm from the nippl e seen on 01/25/2021 is no longer seen. The previously described mass was seen with harmonic imaging . Real time ultrasound was performed by myself with no mass. Several areas of dense breast tissue w ere identified which had a similar appearance to still images on the prior ultrasound, however with r eal-time imaging these areas were proven to be normal breast tissue. IMPRESSION: PROBABLY BENIGN Real-time ultrasound was performed by the geotechnical engineering technician and myself and the previous finding is dete rmined under real-time ultrasound without and with harmonics to be dense breast tissue with no solid mass identified. The findings were discussed with the patient and questions were answered. Will follo w-up in 6 months to ensure no change. The patient is currently asymptomatic and was advised to return earlier if she notices any palpable abnormality. A follow-up left mammogram and an ultrasound in 6 months is recommended to demonstrate stability. This exam was interpreted at Station ID: [id number]. Electronically Signed By: Darnell Lin acr/:01/30/2021 10:23:26 Ultrasound BI-RADS: 3 Probably benign BI-RADS CATEGORY: (3) - 3 Mammo and US [id number] 6 month follow-up LATERALITY: (L)
== END 2021-01-30 08:18 | disposition home or self-care (01) ==
LOC: DI 08:17
PROVIDERS: ATTEND Physician Assistant
DX: R92.8 Other abnormal and inconclusive findings on diagnostic imaging of breast (principal)

== ENCOUNTER 2022-05-23 01:26 | Emergency (ER) | payer OTHER ==
[2022-05-23] MEDS ORDERED: SODIUM CHLORIDE 0.9% 1,000 ML IV STA (01:45)
[2022-05-23 01:50] LABS: BASOPHILS % (AUTO) 0.8 %; EOSINOPHILS # (AUTO) 0.2 10^3/uL (0.0-0.7); EOSINOPHILS % (AUTO) 4.4 %; HGB - HEMOGLOBIN 13.5 g/dL (12.0-16.0); LYMPHOCYTES # (AUTO) 2.2 10^3/uL (1.5-3.5); MEAN CORPUSCULAR HEMOGLOBIN 32.1 pg (27.0-31.0); MEAN CORPUSCULAR HGB CONC 34.6 g/dL (32.0-36.0); MEAN CORPUSCULAR VOLUME 92.9 fL (81.0-99.0); MEAN PLATELET VOLUME 10.7 fL (7.9-10.8); MONOCYTES # (AUTO) 0.5 10^3/uL (0.0-1.0); MONOCYTES % (AUTO) 9.6 %; NEUTROPHILS # (AUTO) 2.1 10^3/uL (1.5-6.6); PLT - PLATELET COUNT 160 10^3/uL (130-450); RED CELL DISTRIBUTION WIDTH 10.8 % (12.0-15.0)
[2022-05-23 02:04] LABS: ALBUMIN 4.1 g/dL (3.2-5.5); ALBUMIN/GLOBULIN RATIO 1.4 (1.0-2.2); BILIRUBIN,TOTAL 0.8 mg/dL (0.2-1.0); CALCIUM 9.4 mg/dL (8.5-10.3); CREATININE 0.6 mg/dL (0.4-1.0); MAGNESIUM 2.1 mg/dL (1.7-2.8); POTASSIUM 4.1 mmol/L (3.5-5.0)
--- NOTE | 2022-05-23 02:09 | ED Physician Documentation ---
PD HPI CHEST PAIN - Stated complaint Stated Complaint: CHEST TIGHTNESS - Chief complaint Chief Complaint: Cardiac - History obtained from History obtained from: Patient - Additional information Additional information: Patient is a 61-year-old female with no significant past medical history presenting for evaluation of palpitations that have been intermittent for 2 weeks. She reports that at times it feels like her heart is pausing and then resuming its normal rhythm. Other times it feels like it is an extra beat or skipping a beat.Her symptoms again started this evening around 8:00 and she repo rts having associated mild chest tightness that has since resolved.The palpitations were occurring more frequently, up to every minute which caused her concern prompting her to come to the emergency department this evening.She was recently seen at the [facility], [place] for her symptoms with lab testing That she reports was normal. She was referred to a soaker meat and has her first appointment next Thursday. She Does have a history of palpitations in the past with no clear etiology. She had a work-up in 2019 where she did see a soaker meat and had a stress test at that time that was normal. She denies any exertional components to her symptoms. She denies difficulty breathing, leg swelling. She denies feeling syncopal.She denies using caffeine, stimulants or cold medications. 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 HEENT: Tonsil/Adenoidectomy Derm: Other - Present Medications Home Medications: Ambulatory Orders Medication Instructions Recorded Confirmed No Known Home Medications 05/23/22 05/23/22 - Allergies Allergies/Adverse Reactions: Allergies Allergy/AdvReac Type Severity Reaction Status Date / Time meloxicam Allergy Dizziness Verified 05/23/22 01:43 Sulfa (Sulfonamide AdvReac Mild Unknown Verified 05/23/22 01:43 Antibiotics) antibiotic Allergy Unknown Uncoded 05/23/22 01:43 - Social History Does the pt smoke?: No Smoking Status: Never smoker Does the pt drink ETOH?: No Does the pt have substance abuse?: No - Immunizations Immunizations are current?: Yes Immunizations: TDAP >10years/unknown - POLST Patient has POLST: No PD ED PE NORMAL - General General: Alert and oriented X 3, No acute distress, Well developed/nourished - HEENT HEENT: Atraumatic, Moist mucous membranes - Neck Neck: Supple, no meningeal sign - Cardiac Cardiac: RRR, No murmur, Strong equal pulses - Respiratory Respiratory: No respiratory distress, Clear bilaterally - Abdomen Abdomen: Soft, Non tender, Non distended - Derm Derm: Warm and dry - Extremities Extremities: No edema, No calf tenderness / cord - Neuro Neuro: Normal speech Results - Vitals Vitals: Vital Signs - 24 hr 05/23/22 05/23/22 05/23/22 01:30 01:35 02:59 Temperature 36.2 C L 36.2 C L Heart Rate 63 59 L Respiratory 18 14 Rate Blood Pressure 157/81 H 162/75 H Blood Pressure 151/81 H [Right] O2 Saturation 99 99 Oxygen O2 Source Room air - EKG (time done) 0133 Rate: Rate (enter#) (57) Rhythm: Sinus bradycardia Maynard: Normal Intervals: No: Prolonged QT Ischemia: No: ST elevation c/w ischemia - Labs Labs: Laboratory Tests 05/23/22 05/23/22 05/23/22 01:36 01:36 01:36 WBC 5.0 RBC 4.20 Hgb 13.5 Hct 39.0 MCV 92.9 MCH 32.1 H MCHC 34.6 RDW 10.8 L Plt Count 160 MPV 10.7 Neut # (Auto) 2.1 Lymph # (Auto) 2.2 Mercer # (Auto) 0.5 Eos # (Auto) 0.2 Baso # (Auto) 0.0 Absolute Nucleated RBC 0.00 Nucleated RBC % 0.0 Sodium 135 Potassium 4.1 Chloride 98 L Carbon Dioxide 27 Anion Gap 10.0 BUN 18 Creatinine 0.6 Estimated GFR (MDRD) 101 Glucose 98 Calcium 9.4 Magnesium 2.1 Total Bilirubin 0.8 AST 16 ALT 16 Alkaline Phosphatase 71 Troponin I High Sens 3.2 Total Protein 7.0 Albumin 4.1 Globulin 2.9 Albumin/Globulin Ratio 1.4 TSH 05/23/22 01:36 WBC RBC Hgb Hct MCV MCH MCHC RDW Plt Count MPV Neut # (Auto) Lymph # (Auto) Mercer # (Auto) Eos # (Auto) Baso # (Auto) Absolute Nucleated RBC Nucleated RBC % Sodium Potassium Chloride Carbon Dioxide Anion Gap BUN Creatinine Estimated GFR (MDRD) Glucose Calcium Magnesium Total Bilirubin AST ALT Alkaline Phosphatase Troponin I High Sens Total Protein Albumin Globulin Albumin/Globulin Ratio TSH 1.65 PD MEDICAL DECISION MAKING - ED course Complexity details: reviewed results, re-evaluated patient, d/w patient ED course: Patient presenting for evaluation of palpitations and chest tightness abdomen present for 4 to 5 hours. Her chest pain has resolved here in the emergency department. Her EKG demonstrates a sinus rhythm. Her labs were reviewed with no abnormalities includingNormal thyroid function, electrolytes and troponin.She is low risk for ACS per the heart score and her symptoms are very atypical for ACS. She has no other symptoms to suggest PE or dissection. She is feeling better here After IV fluids. 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 She has a follow-up appointment with cardiology in 1 week. Patient given reassurance this evening and counseled on concerning symptoms to return for. Departure - Departure Disposition: 01 Home, Self Care Clinical Impression: Palpitations, Feeling of chest tightness Condition: Stable Instructions: ED Chest Pain Atypical Unkn Cause, ED Palpitations Comments: Your labs including electrolytes, thyroid testing, troponin which checks for A heart attack Are all normal. Please keep your follow-up appointment with a soaker meat in 1 week. Return to the ER with any worsening or new symptoms Such as labored breathing or worsening chest pain.
--- NOTE | 2022-05-23 02:25 | XRAY Report ---
PROCEDURE: Chest 1 View X-Ray INDICATIONS: CP TECHNIQUE: One view of the chest was acquired. COMPARISON: 08/18/2020. FINDINGS: Surgical changes and devices: None. Lungs and pleura: No pleural effusions or pneumothorax. Lungs are clear. Mediastinum: Mediastinal contours appear normal. Heart size is normal. Bones and chest wall: No suspicious bony lesions. Overlying soft tissues appear unremarkable. IMPRESSION: 1. No acute cardiopulmonary disease. Reviewed by: Artie Nolen MD on 05/23/2022 2:24 AM PST Approved by: Artie Nolen MD on 05/23/2022 2:24 AM PST Station ID: [id number]
[2022-05-23 03:01] VITALS: BP 162/75
== END 2022-05-23 03:51 | disposition home or self-care (01) ==
LOC: ED 01:26
DX: R00.2 Palpitations (principal); R07.89 Other chest pain
CPT/HCPCS: 36415; 80053; 83735; 84443; 84484; 85025; 93005; 99284

== ENCOUNTER 2022-08-20 23:10 | Emergency (ER) | payer OTHER ==
--- OUTSIDE RECORDS SUMMARY | 2022-08-20 23:18 | EXTERNAL MEDICAL SUMMARY RPT | Continuity of Care Document ---
:1960 Author Organization [facility] Address [address] [place] [address] Phone Care Team Providers Name Role Phone Unavailable Unavailable Unavailable Ismael Hung Md Unavailable Unavailable Britton, Provider Unavailable Unavailable Allergies No information. Encounters No information. Functional Status No information. Immunizations No information. Medications No information. Problems date description facility 2022-08-02 00:00 Diarrhea [facility] 2022-08-02 00:00 Diarrhea [facility] 2022-08-02 00:00 Diarrhea, unspecified [facility] 2022-08-02 00:00 Diarrhea, unspecified [facility] Procedures date description facility 2022-08-02 00:00 Visit Code Hold [facility] 2022-08-02 00:00 Visit Code Hold [facility] Results/Labs No information. Social History date description facility 2022-08-02 00:00 Former smoker [facility] 2022-08-02 00:00 Former smoker [facility] Vital Signs date measurement value units 2022-08-02 00:00 BMI 25.79 kg/m2 2022-08-02 00:00 BP_diastolic 85 mmHg 2022-08-02 00:00 BP_systolic 129 mmHg 2022-08-02 00:00 heart_rate 62 /min 2022-08-02 00:00 height_metric 172.72 cm 2022-08-02 00:00 height_standard 68 in 2022-08-02 00:00 respiration_rate 16 /min 2022-08-02 00:00 temperature_metric 36.78 C 2022-08-02 00:00 temperature_standard 98.2 F 2022-08-02 00:00 weight_metric 76.66 kg 2022-08-02 00:00 weight_standard 169 lb
[2022-08-20 23:47] LABS: BASOPHILS # (AUTO) 0.1 10^3/uL (0.0-0.1); BASOPHILS % (AUTO) 1.1 %; EOSINOPHILS # (AUTO) 0.7 10^3/uL (0.0-0.7); EOSINOPHILS % (AUTO) 10.6 %; HCT - HEMATOCRIT 35.6 % (37.0-47.0); HGB - HEMOGLOBIN 12.4 g/dL (12.0-16.0); LYMPHOCYTES # (AUTO) 1.9 10^3/uL (1.5-3.5); LYMPHOCYTES % (AUTO) 29.4 %; MEAN CORPUSCULAR HGB CONC 34.8 g/dL (32.0-36.0); MEAN CORPUSCULAR VOLUME 91.8 fL (81.0-99.0); MEAN PLATELET VOLUME 9.8 fL (7.9-10.8); MONOCYTES # (AUTO) 0.9 10^3/uL (0.0-1.0); MONOCYTES % (AUTO) 13.7 %; NEUTROPHILS # (AUTO) 2.9 10^3/uL (1.5-6.6); PLT - PLATELET COUNT 229 10^3/uL (130-450); RED BLOOD COUNT 3.88 10^6/uL (4.20-5.40); RED CELL DISTRIBUTION WIDTH 11.1 % (12.0-15.0); WHITE BLOOD COUNT 6.3 x10^3/uL (4.8-10.8)
--- NOTE | 2022-08-20 23:54 | ED Physician Documentation ---
PD HPI ABD PAIN - Stated complaint Stated Complaint: ABD PX/CONSTIPATION - Chief complaint Chief Complaint: Abd Pain - History obtained from History obtained from: Patient - Additional information Additional information: HPI from patient. Patient says that approximately 5 weeks ago, she had a watery stool and since then has had abnormal bowel movements in that they are [id number] and only small output despite urge to defecate and sensation of abdominal bloating. She has had intermittent abdominal cramping pain. She says she was seen at a walk-in clinic and then subsequently by her primary care provider twice. She was told to take milk of magnesia, then on revisit, was told to add MiraLAX and Metamucil. She has also tried enemas which have provided some symptomatic relief. Patient says that her primary care provider is next planning to perform a CT of her abdomen and pelvis, but that there has been difficulty in having us order go through and thus she has not yet had this test performed. Patient denies fever, denies nausea/vomiting. She has noted small amount of bright red blood per rectum with some of her bowel movements, although only on toilet paper or little bit in the toilet bowl. She has not noted any blood clots Review of Systems Constitutional: denies: Fever Cardiac: reports: Reviewed and negative Respiratory: reports: Reviewed and negative GI: reports: Abdominal Pain. 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 HEENT: Tonsil/Adenoidectomy Derm: Other - Present Medications Home Medications: Ambulatory Orders Medication Instructions Recorded Confirmed Ciprofloxacin [Cipro] 500 mg PO Q12H 7 Days #28 tablet 08/21/22 metroNIDAZOLE [Flagyl] 500 mg PO BID 7 Days #14 tablet 08/21/22 - Allergies Allergies/Adverse Reactions: Allergies Allergy/AdvReac Type Severity Reaction Status Date / Time meloxicam Allergy Dizziness Verified 08/20/22 23:16 Sulfa (Sulfonamide AdvReac Mild Unknown Verified 08/20/22 23:16 Antibiotics) antibiotic Allergy Unknown Uncoded 08/20/22 23:16 - Social History Does the pt smoke?: No Smoking Status: Never smoker Does the pt drink ETOH?: No Does the pt have substance abuse?: No - Immunizations Immunizations are current?: Yes Immunizations: TDAP >10years/unknown - POLST Patient has POLST: No PD ED PE NORMAL - Vitals Vital signs reviewed: Yes - General General: Alert and oriented X 3, No acute distress, Well developed/nourished - Cardiac Cardiac: RRR, No murmur - Respiratory Respiratory: No respiratory distress, Clear bilaterally - Abdomen Abdomen: Soft, Non tender, Non distended Results - Vitals Vitals: Vital Signs - 24 hr 08/20/22 08/20/22 08/21/22 23:17 23:29 01:30 Temperature 36.8 C Heart Rate 78 65 71 Respiratory 16 17 Rate Blood Pressure 124/77 107/94 H 109/73 O2 Saturation 99 100 100 08/21/22 08/21/22 03:00 04:02 Temperature 36.8 C Heart Rate 66 70 Respiratory 18 Rate Blood Pressure 134/73 H 129/71 O2 Saturation 100 98 Oxygen O2 Source Room air - Labs Labs: Laboratory Tests 08/20/22 08/20/22 08/20/22 23:38 23:38 23:48 WBC 6.3 RBC 3.88 L Hgb 12.4 Hct 35.6 L MCV 91.8 MCH 32.0 H MCHC 34.8 RDW 11.1 L Plt Count 229 MPV 9.8 Neut # (Auto) 2.9 Lymph # (Auto) 1.9 Butler # (Auto) 0.9 Eos # (Auto) 0.7 Baso # (Auto) 0.1 Absolute Nucleated RBC 0.00 Nucleated RBC % 0.0 Sodium 130 L Potassium 4.4 Chloride 95 L Carbon Dioxide 25 Anion Gap 10.0 BUN 10 Creatinine 0.5 Estimated GFR (MDRD) 125 Glucose 99 Calcium 9.3 Total Bilirubin 0.6 AST 26 ALT 22 Alkaline Phosphatase 71 Total Protein 7.0 Albumin 3.5 Globulin 3.5 Albumin/Globulin Ratio 1.0 Lipase 28 Urine Color YELLOW Urine Clarity CLEAR Urine pH 6.0 Ur Specific [place] <=1.005 Urine Protein NEGATIVE Urine Glucose (UA) NEGATIVE Urine Ketones 15 H Urine Occult Blood TRACE-INTA Urine Nitrite NEGATIVE Urine Bilirubin NEGATIVE Urine Urobilinogen 0.2 (NORMAL) Ur Leukocyte Esterase NEGATIVE Ur Microscopic Review NOT INDICATED Urine Culture Comments NOT INDICATED Stl C. diff Tox B Gene 08/21/22 01:30 WBC RBC Hgb Hct MCV MCH MCHC RDW Plt Count MPV Neut # (Auto) Lymph # (Auto) Butler # (Auto) Eos # (Auto) Baso # (Auto) Absolute Nucleated RBC Nucleated RBC % Sodium Potassium Chloride Carbon Dioxide Anion Gap BUN Creatinine Estimated GFR (MDRD) Glucose Calcium Total Bilirubin AST ALT Alkaline Phosphatase Total Protein Albumin Globulin Albumin/Globulin Ratio Lipase Urine Color Urine Clarity Urine pH Ur Specific [place] Urine Protein Urine Glucose (UA) Urine Ketones Urine Occult Blood Urine Nitrite Urine Bilirubin Urine Urobilinogen Ur Leukocyte Esterase Ur Microscopic Review Urine Culture Comments Stl C. diff Tox B Gene NEGATIVE - Rads (name of study) CT A/P with IV and PO contrast Relevant Findings:: Prelim report reviewed, See rad report PD Medical Decision Making - ED course Complexity details: reviewed results, re-evaluated patient, considered differential, d/w patient ED course: There are no concerning or diagnostic findings on the blood tests nor urinalysis. Her white blood cell count is normal. An incidental note of mild hyponatremia (sodium of 130) is noted. Her liver function tests and lipase are normal. A CT of abdomen/pelvis with intravenous and oral contrast is undertaken, with findings consistent with "distal colitis from the proximal sigmoid to the rectum, most marked involving the rectum. Findings likely represent infectious versus inflammatory colitis" (per radiologist's interpretation). Also noted on radiologist interpretation is "mild diffuse bladder wall thickening may indicate cystitis"; however, her urinalysis does not have any abnormality and thus cystitis is inconsistent with the laboratory finding. The radiologist makes specific comment of "recommend direct visualization with colonoscopy after acute symptoms resolved to exclude any underlying lesion". I discussed these findings with the patient, the diagnosis, and the follow-up recommendation and the importance of following up even if her symptoms resolve. Return precautions are discussed with the patient. Given the possible infectious causes of colitis, she is given the first doses of both Cipro and metronidazole in the emergency department, and prescriptions for these 2 antibiotics are electronically submitted to her pharmacy of choice. She is able to provide a stool sample during ER stay and this is sent for C. difficile as well as GI PCR panel. These results are pending at the time of discharge from ED. Departure - Departure Disposition: 01 Home, Self Care Clinical Impression: Colitis Condition: Good Instructions: ED Gastroenteritis Report Pend Prescriptions: Ciprofloxacin [Cipro] 500 mg PO Q12H 7 Days #28 tablet metroNIDAZOLE [Flagyl] 500 mg PO BID 7 Days #14 tablet Comments: The CT scan shows significant inflammation of the colon and rectum; this would account for the blood in stool as well as the symptoms (the sensation of bloating and feeling constipated). Inflammation of the colon is called colitis, and this is your current diagnosis. As we discussed, there are several different causes of colitis and, at this time, the cause of your colitis cannot be determined by emergency medicine tests. The stool sample you provided is being tested for some of the bacterial causes of colitis, but I am prescribing antibiotics for you to cover the most common bacterial causes of colitis. Amongst the other causes of colitis would be inflammatory bowel disease (such as Crohn's disease or ulcerative colitis). This diagnosis typically requires further testing including colonoscopy, and thus you need to follow-up with your primary care provider within the next 3 to 5 days for reevaluation of your current symptoms as well as to discuss whether or not further testing would be needed regardless of symptoms. You are given the first dose of the antibiotics (metronidazole and ciprofloxacin) in the emergency department, and prescriptions for both of these antibiotics have been electronically submitted to the [facility] pharmacy in [place]. Discharge Date/Time: 08/21/22 04:00
[2022-08-20 23:56] LABS: ALBUMIN 3.5 g/dL (3.2-5.5); BILIRUBIN,TOTAL 0.6 mg/dL (0.2-1.0); CALCIUM 9.3 mg/dL (8.5-10.3); CREATININE 0.5 mg/dL (0.4-1.0); POTASSIUM 4.4 mmol/L (3.5-5.0)
[2022-08-20 23:56] LABS: BILIRUBIN,URINE NEGATIVE (NEGATIVE); GLUCOSE, URINE (UA) NEGATIVE (NEGATIVE); KETONES,URINE (UA) 15 mg/dL (NEGATIVE); LEUKOCYTE ESTERASE, URINE NEGATIVE (NEGATIVE); NITRITE,URINE NEGATIVE (NEGATIVE); OCCULT BLOOD,URINE TRACE-INTA (NEGATIVE); PROTEIN,URINE NEGATIVE (NEGATIVE); UROBILINOGEN,URINE 0.2 (NORMAL) E.U./dL (NORMAL)
[2022-08-20 23:58] LABS: CLARITY,URINE CLEAR (CLEAR)
[2022-08-21] MEDS ORDERED: iohexoL-300 100 ML VIAL ONE (01:21)
[2022-08-21] MEDS ORDERED: iohexoL-300 100 ML VIAL IVP ONE (02:04)
[2022-08-21] MEDS ORDERED: DIATRIZOATE MEGLU/DIATRIZO SOD 30 ML BOTTLE PO ONE (02:05)
[2022-08-21] MEDS ORDERED: CIPROFLOXACIN 250 MG TABLET PO STA (03:46)
[2022-08-21] MEDS ORDERED: metroNIDAZOLE 250 MG TABLET PO STA (03:46)
[2022-08-21 04:06] VITALS: BP 129/71
--- NOTE | 2022-08-21 07:58 | CT Report ---
PROCEDURE: ABDOMEN/PELVIS W INDICATIONS: abd. pain, distention CONTRAST: Omni 300 100 TECHNIQUE: After the administration of oral and intravenous contrast, 5 mm thick sections acquired from the diap hragms to the symphysis. 5 mm thick coronal and sagittal reformats were acquired. For radiation dos e reduction, the following was used: automated exposure control, adjustment of mA and/or kV accordin g to patient size. COMPARISON: None. FINDINGS: Image quality: Excellent. ABDOMEN: Lung bases: Lung bases are clear. Heart size is normal. Solid organs: Liver and spleen are normal in size and enhancement. Gallbladder is contracted, withi n normal limits Biliary system is non dilated. Pancreas enhances normally. No adrenal nodules. Ki dneys demonstrate normal size and enhancement, without hydronephrosis. Peritoneum and bowel: Distal colitis extending from the entire sigmoid through the rectum, worst at t he rectum. There is wall enhancement and wall thickening and inflammatory change in the adjacent fat. No free fluid or air. Nodes and vessels: No retroperitoneal or mesenteric adenopathy by size criteria. Aorta and inferior vena cava are normal in size. Miscellaneous: No ventral hernias. PELVIS: Genitourinary: Mild diffuse bladder wall thickening. Miscellaneous: No inguinal hernias or adenopathy. Bones: No suspicious bony lesions. No vertebral body compression fractures. IMPRESSION: 1. Distal colitis extending from the proximal sigmoid through the rectum, most marked involving the r ectum. Findings likely represent infectious versus inflammatory colitis. 2. Mild diffuse bladder wall thickening may indicate cystitis. Comment: Recommend direct visualization with colonoscopy after acute symptoms resolve to exclude any underlying lesion. Findings are concordant with preliminary interpretation provided by [facility]. Reviewed by: Gregory Giles MD on 08/21/2022 7:57 AM PST Approved by: Gregory Giles MD on 08/21/2022 7:57 AM PST Station ID: [id number]
[2022-08-22 07:10] LABS: ADENOVIRUS F 40/41 Not Detected (Not Detected); ASTROVIRUS Not Detected (Not Detected); C DIFFICILE TOXIN A/B Not Detected (Not Detected); CAMPYLOBACTER Not Detected (Not Detected); CRYPTOSPORIDIUM Not Detected (Not Detected); CYCLOSPORA CAYETANENSIS Not Detected (Not Detected); ENTAMOEBA HISTOLYTICA Not Detected (Not Detected); ENTEROAGGREGATIVE E COLI Not Detected (Not Detected); ENTEROPATHOGENIC E COLI Not Detected (Not Detected); ENTEROTOXIGENIC E COLI Not Detected (Not Detected); GIARDIA LAMBLIA Not Detected (Not Detected); NOROVIRUS GI/GII Not Detected (Not Detected); PLESIOMONAS SHIGELLOIDES Not Detected (Not Detected); ROTAVIRUS A Not Detected (Not Detected); SALMONELLA Not Detected (Not Detected); SAPOVIRUS Not Detected (Not Detected); SHIGA-TOXIN-PRODUCING E COLI Not Detected (Not Detected); SHIGELLA/ENTEROINVASIVE E COLI Not Detected (Not Detected); VIBRIO Not Detected (Not Detected); VIBRIO CHOLERAE Not Detected (Not Detected); YERSINIA ENTEROCOLITICA Not Detected (Not Detected)
== END 2022-08-21 04:00 | disposition home or self-care (01) ==
LOC: ED 23:10
DX: K52.9 Noninfective gastroenteritis and colitis, unspecified (principal); E03.9 Hypothyroidism, unspecified; E78.00 Pure hypercholesterolemia, unspecified
CPT/HCPCS: 36415; 74177; 80053; 81003; 83690; 85025; 87493; 87507; 99284; A9270; Q9967; 81001; 87086

== ENCOUNTER 2022-09-02 16:19 | Outpatient (CLI) | payer OTHER | END 2022-09-02 16:20 | disposition short-term general hospital (02) | LOC: EMS 16:19 | DX: R42 Dizziness and giddiness (principal); R53.1 Weakness; R11.2 Nausea with vomiting, unspecified; R19.7 Diarrhea, unspecified; R10.84 Generalized abdominal pain; R10.817 Generalized abdominal tenderness; R00.0 Tachycardia, unspecified; R50.9 Fever, unspecified | CPT/HCPCS: A0425; A0427 ==

== ENCOUNTER 2022-09-16 03:57 | Outpatient (CLI) | payer OTHER | END 2022-09-16 23:59 | disposition short-term general hospital (02) | LOC: EMS 03:57 | DX: R07.9 Chest pain, unspecified (principal) | CPT/HCPCS: A0425; A0427 ==

== ENCOUNTER 2022-09-30 12:21 | Emergency (ER) | payer OTHER ==
--- OUTSIDE RECORDS SUMMARY | 2022-09-30 12:44 | EXTERNAL MEDICAL SUMMARY RPT | Continuity of Care Document ---
:1960 Author Organization [facility] Address [address] [place] [address] Phone Care Team Providers Name Role Phone [...]
--- NOTE | 2022-09-30 12:51 | ED Physician Documentation ---
PD HPI FOCAL NEURO - Stated complaint Stated Complaint: FACE NUMB/HEAD ACHE - Chief complaint Chief Complaint: Neuro - History obtained from History obtained from: Patient - History of Present Illness Timing - onset: How many days ago (2-3) Timing - duration: Days (2-3) Timing - details: Gradual onset (The patient has had onset of frontal generalized headache associated with blurred vision and both eyes and some feeling of numbness in her face today. No lateralizing symptoms. No numbness or weakness in the arms or legs. No trouble speaking nor confusion.), Still present Severity of deficit: Mild Weakness: No: Face, Arm, Leg Numbness: Face, Right, Left. No: Arm, Leg Associated symptoms: Headache (generalized, but more frontal) Contributing factors: positive: Other (currently on steroid tapering for ulcerative colitis new onset process, hospitalized 3 weeks ago for it.). negative: Anticoagulated, Atrial fibrillation Baseline status: positive: A&OX3, ambulatory, indep Similar symptoms before: Diagnosis (Some history of migraine type headaches in the past. Not recent.) Recently seen: Admitted (Patient was recently hospitalized several weeks ago for abdominal pain and diagnosed with ulcerative colitis. This was a new process for her. She is on a tapering dose of prednisone currently at 20 mg daily this week.), Other (she called her primary care about the symptoms and referred urgently to the ER.) Review of Systems Constitutional: denies: Fever, Chills Eyes: reports: Decreased vision. denies: Loss of vision, Photophobia Nose: denies: Rhinorrhea / runny nose, Congestion Throat: denies: Sore throat Respiratory: denies: Cough GI: reports: Abdominal Pain (generally improving compared to few weeks ago.). denies: Vomiting, Diarrhea Skin: denies: Rash Neurologic: reports: Numbness (general on face both sides). 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 HEENT: Tonsil/Adenoidectomy Derm: Other - Present Medications Home Medications: Ambulatory Orders Medication Instructions Recorded Confirmed Ciprofloxacin [Cipro] 500 mg PO Q12H 7 Days #28 tablet 08/21/22 metroNIDAZOLE [Flagyl] 500 mg PO BID 7 Days #14 tablet 08/21/22 - Allergies Allergies/Adverse Reactions: Allergies Allergy/AdvReac Type Severity Reaction Status Date / Time meloxicam Allergy Dizziness Verified 09/30/22 12:26 Sulfa (Sulfonamide AdvReac Mild Unknown Verified 09/30/22 12:26 Antibiotics) antibiotic Allergy Unknown Uncoded 09/30/22 12:26 - Social History Does the pt smoke?: No Smoking Status: Never smoker Does the pt drink ETOH?: No Does the pt have substance abuse?: No - Immunizations Immunizations are current?: Yes Immunizations: TDAP >10years/unknown - POLST Patient has POLST: No PD ED PE NORMAL - Vitals Vital signs reviewed: Yes - General General: Alert and oriented X 3, No acute distress, Well developed/nourished - HEENT HEENT: PERRL, EOMI, Other (fundi appear normal though pupils constricted. 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, No motor deficit, No sensory deficit, Normal speech NIHSS - Level of Consciousness Level of consciousness: (0) Alert, Keenly responsive LOC Questions: (0) Answers both Q's correct LOC Commands: (0) Performs both correctly - Gaze Best Gaze: (0) Normal - Visual Visual: (0) No loss - Facial Palsy Facial Palsy: (0) Normal, symmetrical movement - Motor Arms (both separate) Motor Arm (right): (0) No drift Motor Arm (left): (0) No drift - Motor Legs (both separate) Motor Leg (right): (0) No drift Motor Leg (left): (0) No drift - Limb Ataxia Limb Ataxia: (0) Absent - Sensory Sensory: (0) Normal - Best Language Best Language: (0) No aphasia - Dysarthria Dysarthria: (0) Normal - Extinction and Inattention (formally neg Extinction and inattention: (0) No abnormality - Total Score/Results Total Score/Result: 0 Results - Vitals Vitals: Vital Signs - 24 hr 09/30/22 12:26 Temperature 36.5 C Heart Rate 73 Respiratory 16 Rate Blood Pressure 127/67 O2 Saturation 98 Oxygen O2 Source Room air - Labs Labs: Laboratory Tests 09/30/22 09/30/22 09/30/22 13:24 13:24 13:24 WBC 4.8 RBC 3.39 L Hgb 11.0 L Hct 33.1 L MCV 97.6 MCH 32.4 H MCHC 33.2 RDW 13.3 Plt Count 178 MPV 8.5 Neut # (Auto) Not Reportable Lymph # (Auto) Not Reportable [place] # (Auto) Not Reportable Eos # (Auto) Not Reportable Baso # (Auto) Not Reportable Absolute Nucleated RBC Not Reportable Total Counted 100 Band Neuts % (Manual) 5 Abnorm Lymph % (Manual) 0 Nucleated RBC % Not Reportable Neutrophils # (Manual) 3.6 Lymphocytes # (Manual) 0.7 L Monocytes # (Manual) 0.4 Eosinophils # (Manual) 0.0 Basophils # (Manual) 0.0 Differential Comment MANUAL DIFFERENTIAL Manual Slide Review Indicated WBC Morphology NORMAL APPEARANCE Platelet Estimate NORMAL (130-450,000) Platelet Morphology NORMAL APPEARANCE RBC Morph Micro Appear NORMAL APPEARANCE ESR 27 Sodium 134 L Potassium 3.3 L Chloride 99 L Carbon Dioxide 28 Anion Gap 7.0 BUN 11 Creatinine 0.7 Estimated GFR (MDRD) 85 L Glucose 96 Calcium 8.1 L Magnesium 1.8 Total Bilirubin 0.6 AST 11 ALT 14 Alkaline Phosphatase 43 Total Protein 5.6 L Albumin 2.9 L Globulin 2.7 Albumin/Globulin Ratio 1.1 Lipase 58 H TSH 09/30/22 13:24 WBC RBC Hgb Hct MCV MCH MCHC RDW Plt Count MPV Neut # (Auto) Lymph # (Auto) [place] # (Auto) Eos # (Auto) Baso # (Auto) Absolute Nucleated RBC Total Counted Band Neuts % (Manual) Abnorm Lymph % (Manual) Nucleated RBC % Neutrophils # (Manual) Lymphocytes # (Manual) Monocytes # (Manual) Eosinophils # (Manual) Basophils # (Manual) Differential Comment Manual Slide Review WBC Morphology Platelet Estimate Platelet Morphology RBC Morph Micro Appear ESR Sodium Potassium Chloride Carbon Dioxide Anion Gap BUN Creatinine Estimated GFR (MDRD) Glucose Calcium Magnesium Total Bilirubin AST ALT Alkaline Phosphatase Total Protein Albumin Globulin Albumin/Globulin Ratio Lipase TSH 0.21 L PD Medical Decision Making - ED course Complexity details: reviewed results, considered differential (Headache and facial numbness with some blurred vision. She is not hypertensive. Consider electrolyte disorder versus steroid effect or hyperglycemia. Less likely central ischemia or edema, Consider imaging such as MRI.), d/w patient Departure - Departure Clinical Impression: Headache, Facial numbness Condition: Stable Record reviewed to determine appropriate education?: Yes
[2022-09-30] MEDS ORDERED: SODIUM CHLORIDE 0.9% 1,000 ML IV STA (13:17)
[2022-09-30] MEDS ORDERED: KETOROLAC 15 MG/ML VIAL IVP STA (13:18)
[2022-09-30] MEDS ORDERED: ACETAMINOPHEN 325 MG TABLET PO STA (13:18)
[2022-09-30 13:32] LABS: BASOPHILS % (AUTO) 0.4 %; EOSINOPHILS % (AUTO) 2.1 %; HCT - HEMATOCRIT 33.1 % (37.0-47.0); LYMPHOCYTES % (AUTO) 22.5 %; MEAN CORPUSCULAR HEMOGLOBIN 32.4 pg (27.0-31.0); MEAN CORPUSCULAR HGB CONC 33.2 g/dL (32.0-36.0); MEAN CORPUSCULAR VOLUME 97.6 fL (81.0-99.0); MEAN PLATELET VOLUME 8.5 fL (7.9-10.8); MONOCYTES % (AUTO) 10.7 %; NEUTROPHILS % (AUTO) 63.9 %; PLT - PLATELET COUNT 178 10^3/uL (130-450); RED BLOOD COUNT 3.39 10^6/uL (4.20-5.40); RED CELL DISTRIBUTION WIDTH 13.3 % (12.0-15.0); WHITE BLOOD COUNT 4.8 x10^3/uL (4.8-10.8)
[2022-09-30 13:34] LABS: SLIDE REVIEW? Indicated
[2022-09-30 13:36] LABS: ABNORMAL LYMPHS % (MANUAL) 0 %
[2022-09-30 13:49] LABS: ALBUMIN 2.9 g/dL (3.2-5.5); ALBUMIN/GLOBULIN RATIO 1.1 (1.0-2.2); BILIRUBIN,TOTAL 0.6 mg/dL (0.2-1.0); CALCIUM 8.1 mg/dL (8.5-10.3); CREATININE 0.7 mg/dL (0.4-1.0); MAGNESIUM 1.8 mg/dL (1.7-2.8); POTASSIUM 3.3 mmol/L (3.5-5.0); TOTAL PROTEIN 5.6 g/dL (6.7-8.2)
[2022-09-30 13:58] LABS: BAND NEUTROPHILS % (MANUAL) 5 %; BASOPHILS % (MANUAL) 1 %; LYMPHOCYTES # (MANUAL) 0.7 10^3/uL (1.5-3.5); LYMPHOCYTES % (MANUAL) 15 %; MONOCYTES # (MANUAL) 0.4 10^3/uL (0.0-1.0); NEUTROPHILS # (MANUAL) 3.6 10^3/uL (1.5-6.6)
[2022-09-30 14:00] LABS: DIFFERENTIAL COMMENT MANUAL DIFFERENTIAL; PLATELET ESTIMATE, MANUAL NORMAL (130-450,000) (NORMAL); PLATELET MORPHOLOGY NORMAL APPEARANCE (NORMAL); RBC MORPHOLOGY (MULTIPLE) NORMAL APPEARANCE (NORMAL); WBC MORPHOLOGY (MULTIPLE) NORMAL APPEARANCE (NORMAL)
[2022-09-30 15:28] LABS: FREE T3 2.99 pg/mL (2.5-3.9)
[2022-09-30 15:30] LABS: FREE T4 (FREE THYROXINE) 1.36 ng/dL (0.58-1.64)
--- NOTE | 2022-09-30 16:17 | MRI Report ---
PROCEDURE: MRI brain without contrast INDICATIONS: headache and facial numbness TECHNIQUE: Noncontrast axial T1 spin echo, axial T2 fast spin echo, sagittal and axial FLAIR, coronal T2 fast sp in echo, axial gradient echo, axial diffusion and ADC through the brain. COMPARISON: None. FINDINGS: Image quality: Excellent. CSF Spaces: Basal cisterns are patent. No extra-axial fluid collections. Ventricles are normal in size and shape. Brain: No intracranial masses or hemorrhage. Carey/white matter interface is normal. Brainstem appe ars normal. Diffusion-weighted images demonstrate no acute ischemic insult. No chronic ischemic ins ults. Normal intravascular flow voids are present. Skull and face: Calvarium has normal marrow signal. Orbits appear normal. Sinuses: Sinuses and mastoids are clear. IMPRESSION: Normal MRI of the brain. No acute infarct, hemorrhage or mass lesion Reviewed by: Jake Gudino MD on 09/30/2022 3:16 PM AKCHANI Approved by: Jake Gudino MD on 09/30/2022 3:16 PM AKDT Station ID: [id number]
[2022-09-30] MEDS ORDERED: POTASSIUM CHLORIDE 20 MEQ TABLET PO STA (16:36)
[2022-09-30] MEDS ORDERED: CALCIUM GLUC 1,000MG/50ML-NACL 1,000 MG/50 ML BAG IV STA (16:37)
[2022-09-30] MEDS ORDERED: MORPHINE 2 MG/ML CARPUJECT IVP STA (17:49)
--- NOTE | 2022-09-30 17:51 | ED Physician Documentation ---
ED Addendum - Addendum Addendum: 09/30/22 17:49 Patient was signed out to me by Dr. Park. Please see his note for full H&P on this patient. Briefly she is a 61-year-old female who presents to the emergency department stating that she has headache and facial numbness, bilateral. She is signed out awaiting a head CTShe is signed out awaiting a brain MRI. This is negative for any acute abnormality. She does have mild hypokalemia, mild hypocalcemia, was given potassium and calcium. She does have a low albumin as well, even with correction though her calcium is on the low end of normal. She continued to have a headache, felt better after a dose of morphine. No evidence of stroke, encephalitis, Cleveland's palsy, subarachnoid hemorrhage, tumor. No focal neurological deficits. We will have her follow-up with her PCP for further care. Her TSH is decreased, but T4 and T3 are normal. Patient counseled regarding signs and symptoms for which I believe and urgent re-evaluation would be necessary. Patient with good understanding of and agreement to plan and is comfortable going home at this time This document was made in part using voice recognition software. While efforts are made to proofread this document, sound alike and grammatical errors may occur. Departure - Departure Disposition: 01 Home, Self Care Clinical Impression: Facial numbness, Hypokalemia, Hypocalcemia Headache Qualifiers: Headache type: unspecified Headache chronicity pattern: acute headache Intractability: not intractable Qualified Code(s): R51.9 - Headache, unspecified Condition: Good Instructions: ED Cephalgia Unspecified, ED Paraesthesias Follow-Up: AMBER CUELLO ARNP [Primary Care Provider] - Within 1 week Comments: Please follow-up with your doctor for further care. Please return if you worsen . Your brain MRI does not show any acute abnormalities today. Your CBC shows a mild anemia. Your chemistries show a mildly low sodium, potassium and chloride level. Your calcium and total protein and albumin are mildly low as well. Your thyroid-stimulating hormone is low at 0.21. Your circulating levels of thyroid hormone are normal. I would continue your steroid taper at home as well.
[2022-09-30 18:04] VITALS: BP 120/77
== END 2022-09-30 18:05 | disposition home or self-care (01) ==
LOC: ED 12:21
DX: R51.9 Headache, unspecified (principal); R20.0 Anesthesia of skin
CPT/HCPCS: 36415; 70551; 80053; 83690; 83735; 84439; 84443; 84481; 85025; 85651; 96365; 96375; 99284; A9270

== ENCOUNTER 2022-10-23 08:00 | Outpatient (CLI) | payer OTHER | END 2022-10-23 23:59 | disposition home or self-care (01) | LOC: LAB.S 08:00 | PROVIDERS: ATTEND Physician Assistant Medical | DX: R31.9 Hematuria, unspecified (principal) | CPT/HCPCS: 87086 ==

== ENCOUNTER 2023-08-13 13:05 | Outpatient (CLI) | payer OTHER | END 2023-08-13 13:06 | disposition critical access hospital (66) | LOC: EMS 13:05 | DX: R07.89 Other chest pain (principal); R20.0 Anesthesia of skin; M25.519 Pain in unspecified shoulder; R68.84 Jaw pain | CPT/HCPCS: A0425; A0427 ==

== ENCOUNTER 2023-08-13 13:28 | Emergency (ER) | payer OTHER ==
--- NOTE | 2023-08-13 14:07 | ED Physician Documentation ---
PD HPI CHEST PAIN - Stated complaint Stated Complaint: CP - Chief complaint Chief Complaint: Cardiac - History obtained from History obtained from: Patient - History of Present Illness Timing - onset: How many days ago (2-3) Timing - duration: Days Timing - details: Gradual onset, Still present (worse this morning but not abruptly. More of concern to them was the persistence.), Waxing and waning Quality: Tightness, Aching Location: Left chest Radiation: Jaw, Neck Improved by: No: Rest Worsened by: No: Exertion, Movement, Palpation Associated symptoms: No: Shortness of air, Diaphoresis, Nausea, Feeling faint / dizzy Similar symptoms before: No diagnosis Recently seen: Not recently seen Review of Systems Constitutional: denies: Fever, Chills Nose: denies: Rhinorrhea / runny nose, Congestion Throat: denies: Sore throat Respiratory: denies: Cough GI: denies: Abdominal Pain, Vomiting, Diarrhea PD PAST MEDICAL HISTORY - Past Medical History Past Medical History: Yes Cardiovascular: High cholesterol Respiratory: None Neuro: None Endocrine/Autoimmune: HyPOthyroidism GI: Ulcerative colitis Musculoskeletal: Rheumatoid arthritis, Chronic back pain - Past Surgical History Past Surgical History: Yes 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 HEENT: Tonsil/Adenoidectomy Derm: Other - Present Medications Home Medications: Ambulatory Orders Medication Instructions Recorded Confirmed No Known Home Medications 08/13/23 08/13/23 - Allergies Allergies/Adverse Reactions: Allergies Allergy/AdvReac Type Severity Reaction Status Date / Time meloxicam Allergy Dizziness Verified 08/13/23 13:42 Sulfa (Sulfonamide AdvReac Mild Unknown Verified 08/13/23 13:42 Antibiotics) antibiotic Allergy Unknown Uncoded 08/13/23 13:42 - Social History Does the pt smoke?: No Smoking Status: Never smoker Does the pt drink ETOH?: No Does the pt have substance abuse?: No - Immunizations Immunizations are current?: Yes Immunizations: TDAP >10years/unknown - POLST Patient has POLST: No PD ED PE NORMAL - Vitals Vital signs reviewed: Yes - General General: Alert and oriented X 3, No acute distress, Well developed/nourished - Neck Neck: Supple, no meningeal sign, No adenopathy - Cardiac Cardiac: RRR, No murmur - Respiratory Respiratory: Clear bilaterally, Other (no chestwall tenderness nor rash. ) - Abdomen Abdomen: Soft, Non tender - Derm Derm: Normal color, Warm and dry - Extremities Extremities: No tenderness to palpate, No edema, No calf tenderness / cord - Neuro Neuro: Alert and oriented X 3, No motor deficit, Normal speech Results - Vitals Vitals: Oxygen O2 Source Room air - EKG (time done) 14:10 EKG releavant findings:: EKG personally interpreted by author of this note. Relevant findings are: Rate: Rate (enter#) (59) Rhythm: NSR [place]: Normal Intervals: Normal [place] QRS: Normal Ischemia: Normal ST segments. No: ST elevation c/w ischemia, ST depression - Labs Labs: Laboratory Tests 08/13/23 08/13/23 13:57 13:57 WBC 5.2 RBC 3.83 L Hgb 11.4 L Hct 34.2 L MCV 89.3 MCH 29.8 MCHC 33.3 RDW 11.8 L Plt Count 268 MPV 9.4 Neut # (Auto) 3.4 Lymph # (Auto) 1.1 L [place] # (Auto) 0.5 Eos # (Auto) 0.1 Baso # (Auto) 0.0 Absolute Nucleated RBC 0.00 Nucleated RBC % 0.0 Sodium 131 L Potassium 4.2 Chloride 97 L Carbon Dioxide 26 Anion Gap 8.0 BUN 18 Creatinine 0.7 Estimated GFR (MDRD) 84 L Glucose 98 Calcium 9.4 Total Bilirubin 0.3 AST 10 ALT 7 L Alkaline Phosphatase 79 Troponin I High Sens 2.3 Total Protein 7.1 Albumin 3.8 Globulin 3.3 Albumin/Globulin Ratio 1.2 Lipase < 10 L PD Medical Decision Making - ED course Complexity details: reviewed results (ECG and CXR are normal. Troponin is negative, which is good with 2-3 days of symptoms. Clinically low risk for PE. No recent URI. Not clear the etiology. ), considered differential (chest pressu re/ain for 2-3 days. Perssitent. Worse with movement and breathing. Not with palpation. Not exertional. no chestwall tenderness. ), d/w patient Departure - Departure Disposition: Home, Self Care Clinical Impression: Chest discomfort, Ruled out for myocardial infarction Condition: Stable Record reviewed to determine appropriate education?: Yes Instructions: ED Chest Pain Atypical Unkn Cause Comments: Your chest x-ray is clear without any signs of lung abnormality. Your EKG and blood test called troponin are normal so no signs of acute heart attack/heart failure. Electrolytes and blood sugar and such are normal. There is no signs of more significant cause of your symptoms. Unclear the cause for sure. It could be musculoskeletal or such. Tylenol if needed for discomfort. Otherwise regular activity and continue usual medicines. Follow-up with your primary care or physical director if recurring episodes. Return to the ER if needed. Forms: PCP List Discharge Date/Time: 08/13/23 15:15
[2023-08-13 14:12] LABS: BASOPHILS % (AUTO) 0.4 %; EOSINOPHILS # (AUTO) 0.1 10^3/uL (0.0-0.7); EOSINOPHILS % (AUTO) 1.9 %; HCT - HEMATOCRIT 34.2 % (37.0-47.0); HGB - HEMOGLOBIN 11.4 g/dL (12.0-16.0); LYMPHOCYTES # (AUTO) 1.1 10^3/uL (1.5-3.5); LYMPHOCYTES % (AUTO) 21.6 %; MEAN CORPUSCULAR HEMOGLOBIN 29.8 pg (27.0-31.0); MEAN CORPUSCULAR HGB CONC 33.3 g/dL (32.0-36.0); MEAN CORPUSCULAR VOLUME 89.3 fL (81.0-99.0); MEAN PLATELET VOLUME 9.4 fL (7.9-10.8); MONOCYTES # (AUTO) 0.5 10^3/uL (0.0-1.0); MONOCYTES % (AUTO) 8.9 %; NEUTROPHILS # (AUTO) 3.4 10^3/uL (1.5-6.6); NEUTROPHILS % (AUTO) 66.8 %; PLT - PLATELET COUNT 268 10^3/uL (130-450); RED BLOOD COUNT 3.83 10^6/uL (4.20-5.40); RED CELL DISTRIBUTION WIDTH 11.8 % (12.0-15.0); WHITE BLOOD COUNT 5.2 x10^3/uL (4.8-10.8)
[2023-08-13 14:25] LABS: ALBUMIN 3.8 g/dL (3.2-5.5); ALBUMIN/GLOBULIN RATIO 1.2 (1.0-2.2); ALKALINE PHOSPHATASE 79 IU/L (42-121); ALT ALANINE AMINOTRANSFERASE 7 IU/L (10-60); AST ASPARTATE AMINOTRANSFERASE 10 IU/L (10-42); BILIRUBIN,TOTAL 0.3 mg/dL (0.2-1.0); BUN - BLOOD UREA NITROGEN 18 mg/dL (6-20); CALCIUM 9.4 mg/dL (8.5-10.3); CARBON DIOXIDE - CO2 26 mmol/L (21-32); CHLORIDE 97 mmol/L (101-111); CREATININE 0.7 mg/dL (0.6-1.3); GFR - MDRD 84 (>89); GLUCOSE 98 mg/dL (74-104); POTASSIUM 4.2 mmol/L (3.5-4.5); SODIUM 131 mmol/L (135-145); TOTAL PROTEIN 7.1 g/dL (6.4-8.9)
[2023-08-13 14:26] LABS: LIPASE < 10 U/L (11-82); TROPONIN I HIGH SENSITIVITY 2.3 ng/L (2.3-14.8)
[2023-08-13 15:15] VITALS: BP 134/72; O2SAT 94
--- NOTE | 2023-08-13 15:36 | XRAY Report ---
PROCEDURE: Chest 1V INDICATIONS: Chest pain TECHNIQUE: One view of the chest was acquired. COMPARISON: None. FINDINGS: Surgical changes and devices: None. Lungs and pleura: No pleural effusions or pneumothorax. Lungs are clear. Mediastinum: Mediastinal contours appear normal. Heart size is normal. Bones and chest wall: No suspicious bony lesions. Overlying soft tissues appear unremarkable. IMPRESSION: No acute cardiopulmonary process. Reviewed by: Teo Gerber MD on 08/13/2023 3:35 PM PST Approved by: Teo Gerber MD on 08/13/2023 3:35 PM PST Station ID: [id number]
== END 2023-08-13 15:15 | disposition home or self-care (01) ==
LOC: EDUNIT# → ED 13:28
DX: R07.9 Chest pain, unspecified (principal); E03.9 Hypothyroidism, unspecified; E78.00 Pure hypercholesterolemia, unspecified; M06.9 Rheumatoid arthritis, unspecified; Z87.19 Personal history of other diseases of the digestive system
CPT/HCPCS: 36415; 80053; 83690; 84484; 85025; 93005; 99283; 99284

== ENCOUNTER 2023-08-20 22:58 | Emergency (ER) | payer OTHER ==
--- NOTE | 2023-08-20 23:45 | XRAY Report ---
PROCEDURE: Foot 3+V RT INDICATIONS: pain +tenderness/swelling R FOOT TECHNIQUE: 3 views of the foot were acquired. COMPARISON: None. FINDINGS: Bones: No fractures or dislocations. Hammertoe deformities involving second and third toes are seen . Osteoarthritic changes are noted throughout right foot. No suspicious bony lesions. Soft tissues: No tibiotalar joint effusion. Achilles tendon appears normal. IMPRESSION: No acute right foot fracture or dislocation. Hammertoe deformities involving second and third toes. R ight foot osteoarthritis. No radiographic evidence of osteomyelitis. Reviewed by: Andreas Brandon MD on 08/20/2023 11:44 PM PST Approved by: Andreas Brandon MD on 08/20/2023 11:44 PM PST Station ID: [id number]
--- NOTE | 2023-08-21 00:24 | ED Physician Documentation ---
History of Present Illness - Stated complaint Stated Complaint: RT LEG SWELLING/PX - Chief complaint Chief Complaint: Ext Problem - History obtained from History obtained from: Patient, Family () - Additonal information Additional information: 62yF with pmh ulcerative colitis, inflammatory arthritis, p/w pain and swelling in right ankle that is atraumatic. patient expressing concern she has a dvt. denies numbness, weakness, or difficulty with rom. 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 HEENT: Tonsil/Adenoidectomy Derm: Other - Present Medications Home Medications: Ambulatory Orders Medication Instructions Recorded Confirmed Vedolizumab [Entyvio] 300 mg IV MAINTENANCE.IV 08/20/23 - Allergies Allergies/Adverse Reactions: Allergies Allergy/AdvReac Type Severity Reaction Status Date / Time meloxicam Allergy Dizziness Verified 08/20/23 23:10 Sulfa (Sulfonamide AdvReac Mild Unknown Verified 08/20/23 23:10 Antibiotics) antibiotic Allergy Unknown Uncoded 08/20/23 23:10 - Social History Does the pt smoke?: No Smoking Status: Never smoker Does the pt drink ETOH?: No Does the pt have substance abuse?: No - Immunizations Immunizations are current?: Yes Immunizations: TDAP >10years/unknown - POLST Patient has POLST: No PD ED PE NORMAL - Vitals Vital signs reviewed: Yes - General General: Alert and oriented X 3, No acute distress, Well developed/nourished - HEENT HEENT: Atraumatic, PERRL, EOMI - Derm Derm: Normal color, Warm and dry, Other (no erythema or calor to the R ankle or foot) - Extremities Extremities: Other (2+ BL DP pulses BL LE. R ankle with normal ROM. nontender to palpation. csm intact) Results - Vitals Vitals: Vital Signs - 24 hr 08/20/23 08/21/23 23:04 00:35 Temperature 36.6 C Heart Rate 73 70 Respiratory 17 16 Rate Blood Pressure 129/68 134/70 H O2 Saturation 100 98 Oxygen O2 Source Room air PD Medical Decision Making - ED course ED course: 62yF p/w atraumatic R ankle pain, likely related to her inflammatory arthritis. offered steroid taper however patient prefers to f/u with her card cutter on thursday. no suspicion for dvt at this time since calf was completely nontender and no swelling to leg. symptomatic care at home discussed. return precautions given. Departure - Departure Disposition: Home, Self Care Clinical Impression: Pain in extremity Condition: Stable Comments: You were seen in the emergency department for ankle pain. This is not a DVT. You may be experiencing an inflammatory arthritis flare. Elevate the leg, apply ice for 30 minutes every hour, and take tylenol as needed for pain. Please follow-up with your card cutter and return to the emergency department if you have any new or worsening symptoms or other concerns. Forms: PCP List Discharge Date/Time: 08/21/23 00:35
[2023-08-21 00:44] VITALS: BP 134/70; O2SAT 98
== END 2023-08-21 00:35 | disposition home or self-care (01) ==
LOC: ED 22:58
DX: M25.571 Pain in right ankle and joints of right foot (principal); E78.00 Pure hypercholesterolemia, unspecified; E03.9 Hypothyroidism, unspecified; M06.9 Rheumatoid arthritis, unspecified; Z87.19 Personal history of other diseases of the digestive system
CPT/HCPCS: 99283

== ENCOUNTER 2024-03-01 11:03 | Emergency (ER) | payer MEDICARE, OTHER ==
--- NOTE | 2024-03-01 11:33 | XRAY Report ---
PROCEDURE: Chest 1V INDICATIONS: Chest pain TECHNIQUE: One view of the chest was acquired. COMPARISON: 08/13/2023. FINDINGS: Surgical changes and devices: None. Lungs and pleura: No pleural effusions or pneumothorax. Lungs are clear. Mediastinum: Mediastinal contours appear normal. Heart size is normal. Bones and chest wall: No suspicious bony lesions. Overlying soft tissues appear unremarkable. IMPRESSION: No acute cardiopulmonary process. Reviewed by: Andreas Zapien MD on 03/01/2024 11:31 AM PDT Approved by: Andreas Zapien MD on 03/01/2024 11:31 AM PDT Station ID: [id number]
[2024-03-01 11:54] LABS: BASOPHILS % (AUTO) 0.4 %; EOSINOPHILS # (AUTO) 0.1 10^3/uL (0.0-0.7); EOSINOPHILS % (AUTO) 1.8 %; HCT - HEMATOCRIT 38.5 % (37.0-47.0); HGB - HEMOGLOBIN 13.1 g/dL (12.0-16.0); LYMPHOCYTES # (AUTO) 3.3 10^3/uL (1.5-3.5); LYMPHOCYTES % (AUTO) 42.9 %; MEAN CORPUSCULAR HEMOGLOBIN 32.8 pg (27.0-31.0); MEAN CORPUSCULAR VOLUME 96.5 fL (81.0-99.0); MEAN PLATELET VOLUME 10.1 fL (7.9-10.8); MONOCYTES # (AUTO) 0.6 10^3/uL (0.0-1.0); MONOCYTES % (AUTO) 7.5 %; NEUTROPHILS # (AUTO) 3.6 10^3/uL (1.5-6.6); NEUTROPHILS % (AUTO) 47.3 %; PLT - PLATELET COUNT 197 10^3/uL (130-450); RED BLOOD COUNT 3.99 10^6/uL (4.20-5.40); RED CELL DISTRIBUTION WIDTH 11.6 % (12.0-15.0); WHITE BLOOD COUNT 7.7 x10^3/uL (4.8-10.8)
[2024-03-01 12:06] VITALS: BP 136/74
[2024-03-01 12:12] LABS: ALBUMIN 3.9 g/dL (3.2-5.5); ALBUMIN/GLOBULIN RATIO 1.7 (1.0-2.2); ALKALINE PHOSPHATASE 48 IU/L (42-121); ALT ALANINE AMINOTRANSFERASE 11 IU/L (10-60); AST ASPARTATE AMINOTRANSFERASE 16 IU/L (10-42); BILIRUBIN,TOTAL 0.8 mg/dL (0.2-1.0); BUN - BLOOD UREA NITROGEN 15 mg/dL (6-20); CALCIUM 9.3 mg/dL (8.5-10.3); CARBON DIOXIDE - CO2 29 mmol/L (21-32); CHLORIDE 104 mmol/L (101-111); CREATININE 0.9 mg/dL (0.6-1.3); GFR - MDRD 63 (>89); GLUCOSE 81 mg/dL (74-104); LIPASE < 10 U/L (11-82); POTASSIUM 4.1 mmol/L (3.5-4.5); SODIUM 138 mmol/L (135-145); TOTAL PROTEIN 6.2 g/dL (6.4-8.9)
--- NOTE | 2024-03-01 12:12 | ED Physician Documentation ---
PD HPI CHEST PAIN - Stated complaint Stated Complaint: CP NAUSEA - Chief complaint Chief Complaint: Cardiac - History obtained from History obtained from: Patient, Family - Additional information Additional information: This is a 63-year-old female who has a past medical history of ulcerative colitis as well as Chronic polyarthralgia for which she is followed by rheumatology as well as GI. She has been on several different medications for both of these issues and has yet to found a regimen that helps with both. She is currently on methotrexate and infusions as well as currently on a prednisone taper. For the past several days she has had midsternal chest pain that has been fairly persistent was worse this morning since around 5 AM. It is a burning sensation, she also has some discomfort in the posterior neck but the pain does not radiate from the chest up into the anterior neck no relation in the arms or shoulder. It is not worse with exertion, not worse with p.o. intake, not worse with deep breath. She has no associated shortness of breath. She has had a history of PVCs and her palpitations has not noted any worsening of those symptoms recently. She has not had any recent prolonged immobility, lower extremity edema, focal lower extremity swelling, no history of DVT or PE. She took 6 Tums at this morning as she recalls that while she was hospitalized in the past she did have similar symptoms and took some Tums for that. She did not notice any immediate relief. Patient in the past has been on a PPI but is not currently on a PPI but has historically not had any issues with GERD or reflux type symptoms or gastritis.She states she has had difficulty determining if the symptoms are related to her joint pain and other constellation of symptoms that she has had related to her joint pain over the last several years versus if this was discrete chest symptoms and she was concerned therefore she came into the ER. Notably the patient had a nuclear stress test in April 2023 which she reports was normal and she followed up with a ham smoker at that time. Review of Systems Constitutional: reports: Fatigue (Fatigue and sweats are frequent for the patient over last several months.), Sweats Eyes: reports: Reviewed and negative Ears: reports: Reviewed and negative Nose: reports: Reviewed and negative Throat: reports: Reviewed and negative Cardiac: reports: Chest pain / pressure, Palpitations. denies: Pedal edema, Calf pain Respiratory: reports: Reviewed and negative GI: reports: Reviewed and negative : reports: Reviewed and negative Skin: reports: Reviewed and negative Musculoskeletal: reports: Reviewed and negative Neurologic: reports: Reviewed and negative Psychiatric: reports: Reviewed and negative Endocrine: reports: Reviewed and negative Immunocompromised: reports: Immunocompromised PD PAST MEDICAL HISTORY - Past Medical History Past Medical History: Yes Cardiovascular: High cholesterol Respiratory: None Neuro: None Endocrine/Autoimmune: HyPOthyroidism GI: Ulcerative colitis Musculoskeletal: Rheumatoid arthritis, Chronic back pain - Past Surgical History Past Surgical History: Yes General: Colonoscopy /[employer]: Other HEENT: Tonsil/Adenoidectomy Derm: Other - Present Medications Home Medications: Ambulatory Orders Medication Instructions Recorded Confirmed Vedolizumab [Entyvio] 300 mg IV MAINTENANCE.IV 08/20/23 Omeprazole 40 mg PO DAILY #30 cap 03/01/24 - Allergies Allergies/Adverse Reactions: Allergies Allergy/AdvReac Type Severity Reaction Status Date / Time meloxicam Allergy Dizziness Verified 03/01/24 11:11 Sulfa (Sulfonamide AdvReac Mild Unknown Verified 03/01/24 11:11 Antibiotics) antibiotic Allergy Unknown Uncoded 03/01/24 11:11 - Social History Does the pt smoke?: No Smoking Status: Never smoker Does the pt drink ETOH?: No Does the pt have substance abuse?: No - Immunizations Immunizations are current?: Yes Immunizations: TDAP >10years/unknown - POLST Patient has POLST: No PD ED PE NORMAL - Vitals Vital signs reviewed: Yes - General General: Alert and oriented X 3, No acute distress, Well developed/nourished - HEENT HEENT: Atraumatic, Moist mucous membranes, Pharynx benign - Neck Neck: Supple, no meningeal sign, No adenopathy, No JVD - Cardiac Cardiac: RRR, No murmur, No gallop, No rub, Strong equal pulses - Respiratory Respiratory: No respiratory distress, Clear bilaterally - Abdomen Abdomen: Normal bowel sounds, Soft, Non tender, Non distended - Derm Derm: Normal color, Warm and dry, No rash - Neuro Neuro: Alert and oriented X 3 Eye Opening: Spontaneous Motor: Obeys Commands Verbal: Oriented GCS Score: 15 - Psych Psych: Normal mood, Normal affect Results - Vitals Vitals: Vital Signs - 24 hr 03/01/24 03/01/24 03/01/24 11:08 11:54 12:11 Temperature 36.4 C L Heart Rate 67 57 L 56 L Respiratory 20 18 16 Rate Blood Pressure 140/88 H 136/74 H 136/74 H O2 Saturation 98 100 98 03/01/24 03/01/24 13:00 14:30 Temperature Heart Rate 56 L 57 L Respiratory 16 16 Rate Blood Pressure 136/74 H 136/74 H O2 Saturation 98 98 Oxygen O2 Source Room air - EKG (time done) No standard instances EKG releavant findings:: EKG personally interpreted by author of this note. Relevant findings are: Rate: Rate (enter#) (62) Rhythm: NSR Shallowater: Normal Intervals: Normal MO QRS: Normal Ischemia: Non specific changes Computer interpretation: Agree with computer - Labs Labs: Laboratory Tests 03/01/24 03/01/24 03/01/24 11:45 11:45 13:30 WBC 7.7 RBC 3.99 L Hgb 13.1 Hct 38.5 MCV 96.5 MCH 32.8 H MCHC 34.0 RDW 11.6 L Plt Count 197 MPV 10.1 Neut # (Auto) 3.6 Lymph # (Auto) 3.3 Turner # (Auto) 0.6 Eos # (Auto) 0.1 Baso # (Auto) 0.0 Absolute Nucleated RBC 0.00 Nucleated RBC % 0.0 Sodium 138 Potassium 4.1 Chloride 104 Carbon Dioxide 29 Anion Gap 5.0 L BUN 15 Creatinine 0.9 Estimated GFR (MDRD) 63 L Glucose 81 Calcium 9.3 Total Bilirubin 0.8 AST 16 ALT 11 Alkaline Phosphatase 48 Troponin I High Sens 2.6 2.5 Total Protein 6.2 L Albumin 3.9 Globulin 2.3 Albumin/Globulin Ratio 1.7 Lipase < 10 L - Rads (name of study) No standard instances Relevant Findings:: Final report received PD Medical Decision Making - ED course Complexity details: reviewed old records, reviewed results, re-evaluated patient, considered differential, d/w patient ED course: 63-year-old female presented with chest pain as described in HPI. Patient has an unfortunate history of polyarthralgia and other constellation of symptoms that she has dealt with since being diagnosed with ulcerative colitis. She is on Entyvio, methotrexate and currently on a prednisone taper to 20 mg daily. Here, the patient is well-appearing, afebrile nontoxic in no acute distress. Differentials considered included ACS, PE, pneumonia, pneumothorax, dissection, GERD or gastritis, hepatobiliary etiology, or potentially sequela of her polyarthralgia and autoimmune condition.We obtained an EKG which is nonischemic, chest x-ray negative, labs reassuring occluding CBC, CMP And troponin x 2. She has no acute risk factors for PE and Her Wells score is 0. I suspect she has a some gastritis or GERD type symptoms particularly in the setting of frequent and long-term steroid use recently. Her pain has seemed to improve with the Tums t aken earlier and I recommend that we start her back on a PPI at least while she is on the steroid taper and then potentially she can come off of it. This also may be a manifestation of her chronic pain seronegative RA type symptoms. In any case, have low suspicion for ACS at this time especially in the setting of a recent reassuring stress test, negative troponin x 2 and nonischemic EKG. I have recommended she follow-up with her PCP however and ham smoker to discuss in the next few weeks. I reviewed return precautions if she should develop any new or worsening symptoms. Departure - Departure Disposition: 01 Home, Self Care Clinical Impression: Atypical chest pain Condition: Good Instructions: ED Chest Pain Atypical Unkn Cause Prescriptions: Omeprazole 40 mg PO DAILY #30 cap Comments: Ave, thankfully your workup today was reassuring, your chest x-ray, EKG and heart labs were all stable. I think your symptoms may be due to to your underlying joint pain versus a gastritis from recent high-dose prednisone use. I recommend that you start on a proton pump inhibitor to reduce acid in your stomach, and I have prescribed omeprazole for this. I recommend that you take it just until you finish the prednisone and hopefully her symptoms will improve with that. Please continue close follow-up with your [facility] regarding your joint pain. I am very sorry that you have been dealing with this for several years. I am hopeful that they will be able to come up with a good combination of medication for your ulcerative colitis and joint pain. Forms: PCP List Discharge Date/Time: 03/01/24 14:45
[2024-03-01 12:15] LABS: TROPONIN I HIGH SENSITIVITY 2.6 ng/L (2.3-14.8)
[2024-03-01 12:53] VITALS: O2SAT 98
== END 2024-03-01 14:45 | disposition home or self-care (01) ==
LOC: ED 11:03
DX: R07.89 Other chest pain (principal); E78.00 Pure hypercholesterolemia, unspecified; E03.9 Hypothyroidism, unspecified; M06.9 Rheumatoid arthritis, unspecified; Z87.19 Personal history of other diseases of the digestive system
CPT/HCPCS: 36415; 80053; 83690; 84484; 85025; 93005; 99284